=== PATIENT | male | born 1955 | race Caucasian/White ===

== ENCOUNTER 2022-10-18 07:44 | Outpatient (OUT) | payer OTHER, SELFPAY ==
--- NOTE | 2022-10-18 08:07 | CT_ITS ---
[address] [address] Patient Name: CHERYL LIMON MRN: [id number] date: 1955 Sex: M Assigned Patient Location: LAB Current Patient Location: LAB Accession/Order Number: [id number] Exam Date: 10/18/2022 08:45 Report Date: 10/18/2022 09:59 At the request of: LASHAUN JAIME Procedure: CT angio abd aorta runoff EXAMINATION: CT angio abd aorta runoff HISTORY: Venous Insufficiency I87.2 ; poor circulation within lower extremities COMPARISON: No relevant comparison available. TECHNIQUE: After obtaining the patient's consent, CT images of the abdomen, pelvis, and lower extremities were obtained without and with non-ionic intravenous contrast material. Multi-planar reformatted/3-D images were created to optimize visualization of vascular anatomy. Dose reduction techniques were achieved by using automated exposure control and/or adjustment of mA and/or kV according to patient size and/or use of iterative reconstruction technique. FINDINGS: AORTA: Mild atherosclerotic disease of aorta and mild-moderate atherosclerotic narrowing at the origins of the celiac axis and bilateral renal arteries. Unremarkable superior mesenteric artery. ILIAC: No aneurysm or dissection. Minimal atherosclerotic disease. RIGHT LEG: No significant stenosis or occlusion. Minimal atherosclerotic disease. LEFT LEG: No significant stenosis or occlusion. Minimal atherosclerotic disease. LUNG BASES: No visible pulmonary or pleural disease. LIVER: No enlargement, atrophy, abnormal density, or significant focal lesion. BILIARY: No visible dilatation or calcification. PANCREAS: No lesion, fluid collection, ductal dilatation, or atrophy. SPLEEN: No enlargement or focal lesion. ADRENALS: No mass or enlargement. KIDNEYS: No mass, obstruction, or calcification. BOWEL/MESENTERY: Diverticulosis of descending and sigmoid colon without acute inflammatory changes. No visible mass, obstruction, or bowel wall thickening. RETROPERITONEUM: No mass or adenopathy. PELVIC NODES: No adenopathy. URINARY BLADDER: No visible focal wall thickening, lesion, or calculus. PELVIC ORGANS: Moderate amount of fluid within right and left hemiscrotum. Grossly unremarkable prostate. ABDOMINAL WALL: No mass or hernia. BONES: L4 grade 1 anterolisthesis of L5 with right pars interarticularis defect and moderate disc height reduction. Moderate degenerative facet arthropathy L4-5 and L5-S1. OTHER: IMPRESSION: 1. Mild atherosclerotic disease of the aorta without aneurysm or dissection. 2. Minimal atherosclerotic disease of the iliac and lower extremity arteries with no appreciable narrowing. 3. Bilateral scrotal hydroceles of uncertain etiology. 4. Degenerative changes of lower lumbar spine. Electronically authenticated by: MARYELLEN AMAYA Date: 10/18/2022 09:59
[2022-10-18 08:13] LABS: Estimated GFR (African America 57 (>=60); Estimated GFR (Non-African Ame 47 (>=60)
== END 2022-10-18 07:45 ==
LOC: LAB 07:44
PROVIDERS: PCP Family Medicine; Visit Provider Family Medicine
DX: I87.2 Venous insufficiency (chronic) (peripheral) (principal); I70.0 Atherosclerosis of aorta; I70.209 Unspecified atherosclerosis of native arteries of extremities, unspecified extremity; I70.8 Atherosclerosis of other arteries; N43.3 Hydrocele, unspecified; M51.36 Other intervertebral disc degeneration, lumbar region
CPT/HCPCS: 36415; 75635; 82565; Q9967

== ENCOUNTER 2024-01-15 09:23 | Outpatient (OUT) | payer OTHER, SELFPAY ==
[2024-01-15 09:52] LABS: Basophils Percent Auto 0.6 % (0.2-2.0); Eosinophils Absolute Auto 0.1 10^3/uL (0.0-0.7); Eosinophils Percent Auto 2.4 % (0.9-7.0); Hematocrit 38.1 % (42.0-54.0); Hemoglobin 13.2 g/dL (14.0-18.0); Immature Granulocytes Abs Auto 0.01 10^3/uL (0.00-0.03); Immature Granulocytes Pct Auto 0.2 % (0.0-0.5); Lymphocytes Absolute Auto 0.8 10^3/uL (1.2-3.8); Mean Corpuscular HGB Conc 34.6 g/dL (29.9-35.2); Mean Corpuscular Hemoglobin 32.6 pg (25.9-34.0); Mean Corpuscular Volume 94.1 fL (80.0-94.0); Mean Platelet Volume 10.6 fL (9.5-13.5); Monocytes Absolute Auto 0.4 10^3/uL (0.3-0.8); Monocytes Percent Auto 9.4 % (1.7-12.0); Neutrophils Absolute Auto 3.2 10^3/uL (1.4-6.5); Neutrophils Percent Auto 69.4 % (43.0-75.0); Platelet Count 210 10^3/uL (150-450); Red Blood Count 4.05 10^6/uL (4.70-6.10); Red Cell Distribution Width 12.3 % (11.0-15.0); White Blood Count 4.7 10^3/uL (4.0-11.0)
[2024-01-15 11:03] LABS: Alanine Aminotransferase 36 U/L (16-63); Albumin Globulin Ratio 1.1; Albumin Level 3.5 g/dL (3.4-5.0); Alkaline Phosphatase 75 U/L (46-116); Anion Gap 10.4; Aspartate Amino Transferase 23 U/L (15-37); BUN Creatinine Ratio 12.5; Bilirubin Total 0.9 mg/dL (0.2-1.0); Calcium 9.2 mg/dL (8.5-10.1); Carbon Dioxide 29.2 mmol/L (21.0-32.0); Chloride 102 mmol/L (98-107); Chol HDL Ratio 3.6; Cholesterol 203 mg/dL (<=200); Estimated GFR (African America 55 (>=60); Estimated GFR (Non-African Ame 46 (>=60); Free T3 2.28 pg/mL (2.18-3.98); Globulin 3.3 g/dL; Glucose 148 mg/dL (74-106); HDL Cholesterol 57 mg/dL (40-60); Potassium 4.6 mmol/L (3.5-5.1); Sodium 137 mmol/L (136-145); Thyroid Stimulating Hormone 1.928 uIU/mL (0.358-3.740); Total Protein 6.8 g/dL (6.4-8.2); Triglycerides 135 mg/dL (<=150)
[2024-01-15 11:54] LABS: Estimated Average Glucose 183 mg/dL
[2024-01-15 12:08] LABS: Prostate Specific Antigen Dx 1.13 ng/mL (<=4.00)
== END 2024-01-15 09:24 | disposition home or self-care (01) ==
LOC: LAB 09:27
PROVIDERS: PCP Family Medicine; Visit Provider Family Medicine
DX: R25.1 Tremor, unspecified (principal); N40.0 Benign prostatic hyperplasia without lower urinary tract symptoms; K21.9 Gastro-esophageal reflux disease without esophagitis; E11.9 Type 2 diabetes mellitus without complications
CPT/HCPCS: 36415; 80053; 80061; 83036; 84153; 84436; 84443; 84481; 85025

== ENCOUNTER 2024-02-12 14:16 | Outpatient (OUT) | payer OTHER, SELFPAY | END 2024-02-12 14:17 | disposition home or self-care (01) | LOC: PST 14:16 | PROVIDERS: PCP Family Medicine; Visit Provider Surgery | DX: Z01.818 Encounter for other preprocedural examination (principal); Z86.0100 Personal history of colon polyps, unspecified ==

== ENCOUNTER 2024-02-19 08:21 | Day surgery (SDC) | payer OTHER, SELFPAY ==
--- NOTE | 2024-02-19 | OP_ITS ---
OPERATION DATE: 02/19/2024 PREOPERATIVE DIAGNOSIS: Personal history of colon polyps. POSTOPERATIVE DIAGNOSIS: Colon polyps x3; ascending colon x2 and 2 mm distal sigmoid polyp. PROCEDURE: Colonoscopy to cecum with cold snare polypectomy x2 for ascending colon polyps and cold biopsy forceps polypectomy x1 for distal sigmoid polyp. SURGEON: David Cerda M.D. ANESTHESIA: Monitored anesthesia care. ESTIMATED BLOOD LOSS: Less than 1 mL. INDICATIONS AND CONSENT: Patient is a 69-year-old male with a personal history of colon polyps. Last colonoscopy was four years ago. Indications, risks, benefits, alternatives of proceeding with colonoscopy were explained extensively to the patient, including the risks of bleeding, colon perforation or anesthetic complications. All of his questions were answered. Informed consent was obtained. PROCEDURE: Patient brought to the operating room, placed in the left lateral decubitus position. Monitored anesthesia care was provided. Rectal exam was performed which showed no masses or blood. The scope was inserted into the anal canal. Under direct visualization was advanced. It was advanced to the cecum where cecal markings were clearly identified. Upon withdrawal of the scope, mucosal surfaces were carefully examined. There were no mass lesions or polyps. No inflammatory changes or ulcerations. Within the ascending colon, there was noted to be a 4 mm sessile polyp that was removed with cold snare with good hemostasis. Just distal to this was a 3 mm sessile polyp that was also removed with cold snare with good hemostasis. This one was not retrieved. There was no significant diverticulosis. Within the distal sigmoid, there was 2 mm sessile polyp that was removed with cold biopsy forceps with good hemostasis. The scope was retroflexed in the anal canal. There was no significant hemorrhoidal disease. The scope was then withdrawn. Patient tolerated procedure well, was sent to recovery room in good condition. f/u colonoscopy likely in 5 years, but will depend on pathology report. CC: Rodger Sanders M.D. DARELL
--- OUTSIDE RECORDS SUMMARY | 2024-02-19 08:24 | XMS_ITS | CCD ---
Author Organization [facility] Care Team Providers Care Cardiology Associate Name Role Phone MD Baljinder Mccormick Emergency Provider MD Lashaun Sanders Primary Care Provider [phone] PROVIDER, UNKNOWN Admitting Unavailable PROVIDER, UNKNOWN Attending Unavailable PROVIDER, UNKNOWN Admitting Unavailable PROVIDER, UNKNOWN Attending Unavailable Baljinder Mccormick Attending Unavailable Baljinder Mccormick Admdeon Unavailable FranklinyLashaun Primary Care Unavailable HOY ., DR WILKS Consulting Unavailable HOY ., DR WILKS Admdeon Unavailable HOY ., DR WILKS Attending Unavailable HOY ., DR WILKS Primary Care Unavailable Alonso Cash Consulting Unavailable HOY ., DR WILKS Admitting Unavailable HOY ., DR WILKS Attending Unavailable HOY ., DR WILKS Consulting Unavailable HOY ., DR WILKS Primary Care Unavailable AFUA, DR YONI Kirkland Consulting Unavailable Alonso Cash Consulting Unavailable HOY ., DR WILKS Admitting Unavailable HOY ., DR WILKS Attending Unavailable HOY ., DR WILKS Consulting Unavailable HOY ., DR WILKS Primary Care Unavailable AFUA, DR YONI Kirkland Consulting Unavailable HOY ., DR WILKS Admdeon Unavailable HOY ., DR WILKS Attending Unavailable HOY ., DR WILKS Consulting Unavailable HOY ., DR WILKS Primary Care Unavailable HOY ., DR WILKS Primary Care Unavailable HOY ., DR WILKS Attending Unavailable HOY ., DR WILKS Admdeon Unavailable HOY ., DR WILKS Consulting Unavailable Alonso Cash Consulting Unavailable HOY ., DR WILKS Primary Care Unavailable HOY ., DR WILKS Attending Unavailable HOY ., DR WILKS Admitting Unavailable HOY ., DR WILKS Consulting Unavailable YONI BLEDSOE Unavailable EMI MARTINEZ Consulting Unavailable HOY ., DR WILKS Primary Care Unavailable HOY ., DR WILKS Admitting Unavailable HOY ., DR WILKS Attending Unavailable HOY ., DR WILKS Consulting Unavailable Cheryl CERDA Attending Unavailable Lashaun Sanders Referring Unavailable Lashaun Sanders Primary Care Physician Allergies Allergy Classification Reported Allergen(s) Allergy Type Date of Onset Reaction(s) Facility (1 source) No Known Medication Allergies; Translations: [No Known Medication Allergies] Propensity to adverse reactions (disorder) [facility] Repository Medications Current Medications Medication Drug Class(es) Dates Sig (Normalized) Sig (Original) atorvastatin 20 mg oral tablet (2 sources) HMG-CoA Reductase Inhibitor Start: 05-02-2020 take 1 tablet by mouth once daily Atorvastatin (Lipitor) 20 mg Tablet Active 20 MG PO Daily October 28, 2021 6:31pm lansoprazole 15 mg delayed release oral capsule (2 sources) Proton Pump Inhibitor Start: 10-28-2021 take 1 capsule by mouth once daily Lansoprazole (Prevacid) 15 mg Capsule,Delayed Release(Dr/Ec) Active 15 MG PO Daily October 28, 2021 6:31pm Start: 05-02-2020 take 1 capsule by [facility] once daily lansoprazole 30 mg Cap-DR 30 mg = 1 cap(s), Oral, Daily, Refills(s) 0 Start Date: 05/02/20 Status: Ordered metFORMIN hydrochloride 500 mg oral tablet (1 source) Biguanide Start: 01-23-2024 take 1 tablet by mouth twice daily metformin 500 mg Tab 500 mg = 1 tab(s), Oral, BID, Refills(s) 0 Start Date: 01/23/24 Status: Ordered metoprolol tartrate 25 mg oral tablet (1 source) beta-Adrenergic Omar Start: 01-23-2024 take 1 tablet by mouth twice daily Metoprolol tartrate 25 mg Tab 25 mg = 1 tab(s), Oral, BID, Refills(s) 0 Start Date: 01/23/24 Status: Ordered primidone 50 mg oral tablet (2 sources) Anti-epileptic Agent Start: 02-11-2024 take 1 tablet by mouth twice daily primidone 50 mg Tab 50 mg = 1 tab(s), Oral, BID, Refills(s) 0 Start Date: 02/11/24 Status: Ordered Start: 10-28-2021 take 10 mg by mouth once Primi done Active 10 MG PO Once October 28, 2021 6:31pm tamsulosin hydrochloride 0.4 mg oral capsule (1 source) alpha-Adrenergic Omar Start: 05-02-2020 take 1 capsule by mouth once daily Flomax 0.4 mg Cap 0.4 mg = 1 cap(s), Oral, Daily, Refills(s) 0 Start Date: 05/02/20 Status: Ordered Problems Active Problems Problem Classification Problem Date Documented Da te Episodic/Chronic Allergic reactions (1 source) 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 Anal and rectal conditions (1 source) Proctitis 05-02-2020 Episodic Cardiac dysrhythmias (1 source) Paroxysmal ventricular tachycardia 01-23-2024 Chronic Diabetes mellitus without complication (1 source) Diabetes mellitus 01-23-2024 Chronic Esophageal disorders (1 source) Gastroesophageal reflux disease 05-02-2020 Chronic Fluid and electrolyte disorders (1 source) Dehydration; Translations: [Dehydration] 10-28-2021 Episodic Hyperplasia of prostate (1 source) Benign prostatic hyperplasia 05-02-2020 Chronic Other and unspecified benign neoplasm (3 sources) History of polyp of colon; Translations: [Personal history of colonic polyps] Onset: 4 Episodic Other and unspecified benign neoplasm (1 source) Adenomatous polyp of colon 05-19-2020 Episodic Other circulatory disease (1 source) Orthostatic hypotension 05-02-2020 Episodic Other circulatory disease (1 source) Vascular insufficiency 01-23-2024 Episodic Other connective tissue disease (1 source) Pain in right lower leg; Translations: [PAIN IN RIGHT LOWER LEG] Onset: 3 Episodic Other connective tissue disease (1 source) Pain in left lower leg; Translations: [PAIN IN LEFT LOWER LEG] Onset: 3 Episodic Other connective tissue disease (1 source) Disorder of rotator cuff 05-02-2020 Episodic Other connective tissue disease (1 source) Impingement syndrome of shoulder region 05-02-2020 Episodic Other gastrointestinal disorders (1 source) Diarrhea; Translations: [Diarrhea, unspecified] 10-28-2021 Episodic Other gastrointestinal disorders (1 source) History of diverticulitis 05-02-2020 Episodic Other gastrointestinal disorders (1 source) Occult blood in stools 05-03-2020 Episodic Other male genital disorders (1 source) Impotence 05-02-2020 Chronic Other nervous system disorders (1 source) Tremor 05-02-2020 Episodic Other non-traumatic joint disorders (4 sources) Pain in left knee; Translations: [PAIN IN LEFT KNEE] Onset: 3 Episodic Other nutritional; endocrine; and metabolic disorders (1 source) Body mass index 30+ - obesity 02-11-2024 Chronic Other nutritional; endocrine; and metabolic disorders (1 source) Obesity caused by energy imbalance 01-23-2024 Chronic Unclassified (1 source) R19.7 - Diarrhea, unspecified; Translations: [R19.7 - Diarrhea, unspecified] Onset: 2 Past or Other Problems Problem Classification Problem Date Documented Da te Episodic/Chronic Nonspecific chest pain (4 sources) Other chest pain; Translations: [OTHER CHEST PAIN] Onset: 11-08-2021 Episodic Other screening for suspected conditions (not mental disorders or infectious disease) (1 source) Encounter for screening for malignant neoplasm of prostate; Translations: [ENC SCREEN MALIG NEOPLASM PROSTATE] Onset: 04-11-2022 Episodic Residual codes; unclassified (4 sources) Localized edema; Translations: [LOCALIZED EDEMA] Onset: 11-28-2021 Episodic Syncope (4 sources) Syncope and collapse; Translations: [SYNCOPE AND COLLAPSE] Onset: 10-30-2021 Episodic Results Test Name Value Interpretation Reference Range Facility Ambulatory Visit Summaryon 1 Ambulatory Visit Summary Ambulatory Visit Summary TORICHERYL RENDON :1955 Visit Date:02/11/2024 Ambulatory Visit Instructions Your Diagnosis Personal history of colonic polyps Your Care Team Attending Physician - Cheryl CERDA MD Primary Care Physician - Lashaun Sanders MD Referring Physician - Lashaun Sanders MD This Is Your Medications List Contact prescribing physician if questions or concerns atorvastatin (atorvastatin 20 mg Tab) lansoprazole (lansoprazole 30 mg Cap-DR) metformin (metformin 500 mg Tab) metoprolol (Metoprolol tartrate 25 mg Tab) primidone (primidone 50 mg Tab) tamsulosin (Flomax 0.4 mg Cap) Procedures Performed Colonoscopy (05/11/2020), Colonoscopy (10/20/2012), Colonoscopy (03/05/2008), Arthroplasty, Bilateral inguinal hernia repair, Fusion of lumbar spine. Discharge Vitals Heart Rate (Peripheral) 72 Respiratory Rate 16 Blood Pressure 146/84 Height 162.5 cm Height 64 in Weight 82.6 kg Weight 181.72 lb BMI 31.28 Medications What How Much When Instructions Unchanged atorvastatin (atorvastatin 20 mg Tab) 1 Tablets By Mouth Every day Contact prescribing physician if questions or concerns Unchanged lansoprazole (lansoprazole 30 mg Cap-DR) 1 Capsules By Mouth Every day Contact prescribing physician if questions or concerns Unchanged metformin (metformin 500 mg Tab) 1 Tablets By Mouth 2 times a day Contact prescribing physician if questions or concerns Unchanged metoprolol (Metoprolol tartrate 25 mg Tab) 1 Tablets By Mouth 2 times a day Contact prescribing physician if questions or concerns Unchanged primidone (primidone 50 mg Tab) 1 Tablets By Mouth 2 times a day Contact prescribing physician if questions or concerns Unchanged tamsulosin (Flomax 0.4 mg Cap) 1 Capsules By Mouth Every day Contact prescribing physician if questions or concerns Allergies No Known Allergies No Known Medication Allergies Problems Ongoing - Any problem that you are currently receiving treatment for. BMI 31.0-31.9,adult BPH (benign prostatic hyperplasia) Diabetes Dyshidrotic eczema GERD (gastroesophageal reflux disease) History of colon polyps History of diverticulitis Impotence Obesity due to excess calories Orthostatic hypotension Personal history of colonic polyps Positive fecal occult blood test PVT (paroxysmal ventricular tachycardia) Rotator cuff tear Shoulder impingement syndrome Tremor Tubulovillous adenoma of colon Ulcerative proctitis Venous insufficiency Patient Survey You may receive a survey via text or e-mail asking about your office visit. Please share your experience with us by completing your survey. We appreciate your feedback and thank you for choosing us for your care. [facility] Provider Letteron 01-14-2024 Provider Letter Provider Letter January 14, 2024 [address]ART [address] [place] [id number] : 1955 Dear Torijosue, We have been trying to reach you with no success regarding a referral from Dr Sanders. It is important that you return our call upon receiving this letter. Also, at the time of your call, please provide us with your current information. Thank you for your prompt attention to this matter. Sincerely, [facility] General Surgery [phone] [facility] Provider Letteron 05-03-2023 Provider Letter May 03, 2023 CHERYL MART [address] [place] [id number] : 1955 Dear Cheryl, We have been trying to reach you with no success. It is important that you return our call upon receiving this letter. Also, at the time of your call, please provide us with your current information. Thank you for your prompt attention to this matter. Sincerely, Dr. Cheryl Cerda MD General Surgery [facility] Provider Letteron 04-22-2023 Provider Letter April 22, 2023 CHERYL MART [address] [place] [id number] : 1955 Dear Cheryl, We have been trying to reach you with no success. It is important that you return our call upon receiving this letter. Also, at the time of your call, please provide us with your current information. Thank you for your prompt attention to this matter. Sincerely, Dr. Cheryl Cerda MD General Surgery [facility] MRI KNEE LT WO CONon 16- 023 MRI KNEE LT WO CON EXAMINATION: MRI KNEE LT WO CON HISTORY: Derangement of left knee ; acute left knee pain, instability COMPARISON: No relevant comparison available. TECHNIQUE: A complete multi-planar MRI was performed. FINDINGS: MEDIAL COMPARTMENT MEDIAL MENISCUS: Irregular longitudinal T2 signal throughout the meniscus. Thin curvilinear hyperintensity extending from outer wall to superior surface involving the anterior horn. More diffuse increased signal within posterior horn. CARTILAGE: Mild cartilage thinning without focal defect. BONES: No marrow pathology, fracture, or significant arthropathy. MCL AND MEDIAL CAPSULE: Grade I sprain of the medial collateral ligament. LATERAL COMPARTMENT LATERAL MENISCUS: No visible tear or significant degeneration. CARTILAGE: No visible defect. BONES: No marrow pathology, fracture, or significant arthropathy. LCL/POSTEROLAT COMPLEX: Normal lateral collateral ligament, fascicles, lateral capsule and ligaments. ANTERIOR COMPARTMENT PATELLA: No marrow pathology, fracture, or significant arthropathy. CARTILAGE: No visible defect. TENDONS: Normal. EFFUSION: None. No synovitis or loose bodies. ACL: Normal appearing ligament. PCL: Normal appearing ligament. MENISCOFEMORAL: Normal meniscofemoral ligaments. OTHER: Subcutaneous edema. Small Danielson's cyst. IMPRESSION: 1. Intrasubstance degeneration versus small microtears of the medial meniscus. 2. Mild thinning of the cartilage within the medial compartments without appreciable defect. 3. Small joint effusion and small small Danielson's cyst. 4. Subcutaneous edema. Electronically authenticated by: ALONSO CASH Date: 2022-09-25 09:35 Normal [facility] US BERT DOP LEG BILon 023 US BERT DOP LEG TRINY Ultrasound venous duplex scan right lower extremity CLINICAL: Leg pain and edema TECHNIQUE: Aguilar-scale, color-flow, and Spectral Doppler examination of the right lower extremity were performed with and without provocative maneuvers. FINDINGS: Sonographic examination of the right lower extremity deep venous system to include the common femoral, superficial femoral and popliteal veins, demonstrates normal compressibility, color-flow, respiratory variation, and augmentation. The origin and proximal segment of the greater saphenous vein also demonstrates normal compression and color-flow. There is normal color-flow in the peroneal, posterior tibial, and anterior tibial veins. IMPRESSION: No deep venous thrombosis of the right lower extremity. Ultrasound venous duplex scan left lower extremity CLINICAL: Pain and edema TECHNIQUE: Aguilar-scale, color-flow, and Spectral Doppler examination of the left lower extremity were performed with and without provocative maneuvers. FINDINGS: Sonographic examination of the left lower extremity deep venous system to include the common femoral, superficial femoral and popliteal veins, demonstrates normal compressibility, color-flow, respiratory variation, and augmentation. The origin and proximal segment of the greater saphenous vein also demonstrates normal compression and color-flow. There is normal color-flow in the peroneal, posterior tibial, and anterior tibial veins. IMPRESSION: No deep venous thrombosis of the left lower extremity. There was edema in the soft tissues of the calf and ankle. Electronically authenticated by: YONI BLEDSOE Date: 2022-09-12 10:14 Normal [facility] XR KNEE LT 4V or >on 023 XR KNEE LT 4V or > EXAM: XR KNEE LT 4V or > HISTORY: Pain of left knee joint COMPARISON: None. TECHNIQUE: 4 views FINDINGS/IMPRESSION: There is no acute fracture or dislocation. Mild degenerative change of the knee joint with meniscal calcinosis. The soft tissues are unremarkable. Electronically authenticated by: EMI MARTINEZ Date: 2022-09-12 14:00 Normal [facility] INSULINon 04-07-2022 Insulin 14.1 uIU/mL Normal 2.6-24.9 [facility] Comment on above: Performed By: #### I NSULIN #### [facility] [address] [address] [address] Dominga Greenfield CBC AUTO DIFFon 04-06-2022 BASO # 0.0 103/ul Normal 0.0-0.1 [facility] Comment on above: Performed By: #### C BC #### [facility] [address] [place] [address] Dr. Dominga Greenfield Basophils/100 WBC (Bld) 0.6 % Normal 0.2-2.0 [facility] Comment on above: Performed By: #### C BC #### [facility] [address] [place] [address] Dr. Dominga Greenfield EO # 0.1 103/ul Normal 0.0-0.7 [facility] Comment on above: Performed By: #### C BC #### [facility] [address] [place] [address] Dr. Dominga Greenfield Eosinophils/100 WBC (Bld) 2.4 % Normal 0.9-7.0 [facility] Comment on above: Performed By: #### C BC #### [facility] [address] [place] [address] Dr. Dominga Greenfield Erythrocyte distribution width (RBC) [Ratio] 12.5 % Normal 11.0-15.0 [facility] Comment on above: Performed By: #### C BC #### [facility] [address] [place] [address] Dr. Dominga Greenfield Hematocrit (Bld) [Volume fraction] 40.2 % Critically low 42.0-54.0 [facility] Comment on above: Performed By: #### C BC #### [facility] [address] [place] [address] Dr. Dominga Greenfield Hemoglobin (Bld) [Mass/Vol] 13.8 g/dL Critically low 14.0-18.0 [facility] Comment on above: Performed By: #### C BC #### [facility] [address] [place] [address] Dr. Dominga Greenfield IG # 0.02 10e3/ul Normal 0.00-0.03 [facility] Comment on above: Performed By: #### C BC #### [facility] [address] [place] [address] Dr. Dominga Greenfield IG % 0.4 % Normal 0.0-0.5 [facility] Comment on above: Performed By: #### C BC #### [facility] [address] [place] [address] Dr. Dominga Greenfield LYMPH # 1.0 103/ul Critically low 1.2-3.8 [facility] Comment on above: Performed By: #### C BC #### [facility] [address] [place] [address] Dr. Dominga Greenfield Lymphocytes/100 WBC (Bld) 19.8 % Critically low 20.5-60.0 [facility] Comment on above: Performed By: #### C BC #### [facility] [address] [place] [address] Dr. Dominga Greenfield MANUAL DIFF REQ NO Normal [facility] Comment on above: Performed By: #### C BC #### [facility] [address] [place] [address] Dr. Dominga Greenfield MCH (RBC) [Entitic mass] 31.9 pg Normal 25.9-34.0 [facility] Comment on above: Performed By: #### C BC #### [facility] [address] [place] [address] Dr. Dominga Greenfield MCHC (RBC) [Mass/Vol] 34.3 g/dL Normal 29.9-35.2 [facility] Comment on above: Performed By: #### C BC #### [facility] [address] [place] [address] Dr. Dominga Greenfield MCV (RBC) [Entitic vol] 93.1 fL Normal 80.0-94.0 [facility] Comment on above: Performed By: #### C BC #### [facility] [address] [place] [address] Dr. Dominga Greenfield MONO # 0.4 103/ul Normal 0.3-0.8 [facility] Comment on above: Performed By: #### C BC #### [facility] [address] [address] [address] Dominga Greenfield Monocytes/100 WBC (Bld) 8.4 % Normal 1.7-12.0 [facility] Comment on above: Performed By: #### C BC #### [facility] [address] [address] [address] Dominga Greenfield NEUT # 3.4 103/ul Normal 1.4-6.5 [facility] Comment on above: Performed By: #### C BC #### [facility] [address] [address] [address] Dominga Greenfield Neutrophils/100 WBC (Bld) 68.4 % Normal 43.0-75.0 [facility] Comment on above: Performed By: #### C BC #### [facility] [address] [address] [address] Dominga Greenfield Platelet mean volume (Bld) [Entitic vol] 11.0 fL Normal 9.5-13.5 [facility] Comment on above: Performed By: #### C BC #### [facility] [address] [address] [address] Dominga Greenfield PLT 206 103/ul Normal 150-450 [facility] Comment on above: Performed By: #### C BC #### [facility] [address] [address] [address] Dominga Greenfield RBC 4.32 106/ul Critically low 4.70-6.10 [facility] Comment on above: Performed By: #### C BC #### [facility] [address] [address] [address] Dominga Greenfield WBC 5.0 103/ul Normal 4.0-11.0 [facility] Comment on above: Performed By: #### C BC #### [facility] [address] [address] [address] Dominga Greenfield GLYCOHEMOGLOBIN A1Con 2021 ADA RECOMMENDATION SEE BELOW Normal [facility] Comment on above: Result Comment: ADA RECOMMENDED LIMIT 4.0 - 6.0 ADA THERAPEUTIC TARGET < 7.0 ACTION SUGGESTED > 7.0 Performed By: #### A 1C #### [facility] [address] [address] [address] Dominga Greenfield Glucose [Mass/Vol] 146 mg/dL Normal [facility] Comment on above: Performed By: #### A 1C #### [facility] [address] [address] [address] Dominga Greenfield HbA1c (Bld) [Mass fraction] 6.7 % Critically high 4.5-6.2 [facility] Comment on above: Performed By: #### A 1C #### [facility] [address] [place] [address] Dr. Dominga Greenfield LIPID PROFILEon 04-06-2022 CHOL-HDL RATIO NORM SEE BELOW Normal [facility] Comment on above: Result Comment: 3.3 - 4.4 LOW RISK 4.4 - 7.1 AVERAGE RISK 7.1 - 11.0 MODERATE RISK >11.0 HIGH RISK Performed By: #### C MP, URIC, LIPID #### [facility] [address] [place] [address] Dr. Dominga Greenfield Cholesterol [Mass/Vol] 203 mg/dL Critically high <=200 [facility] Comment on above: Performed By: #### C MP, URIC, LIPID #### [facility] [address] [place] [address] Dr. Dominga Greenfield Cholesterol in HDL [Mass/Vol] 65 mg/dL Critically high 40-60 [facility] Comment on above: Performed By: #### C MP, URIC, LIPID #### [facility] [address] [address] [address] Dominga Greenfield Cholesterol in LDL [Mass/Vol] 120.8 mg/dL Normal [facility] Comment on above: Performed By: #### C MP, URIC, LIPID #### [facility] [address] [place] [address] Dr. Dominga Greenfield Cholesterol.total/Nedra sterol in HDL [Mass ratio] 3.1 {ratio} Normal [facility] Comment on above: Performed By: #### C MP, URIC, LIPID #### [facility] [address] [address] [address] Dominga Greenfield HDL NORMAL > or = 60 mg/dl - LOW CARDIOVASCULAR RISK <40 mg/dl - HIGH CARDIOVASCULAR RISK Normal [facility] Comment on above: Performed By: #### C MP, URIC, LIPID #### [facility] [address] [address] [address] Dominga Greenfield LDL CALC NORMAL SEE BELOW Normal [facility] Comment on above: Result Comment: <100 mg/dl OPTIMAL 100 - 129 mg/dl NEAR OR ABOVE OPTIMAL 130 - 159 mg/dl BORDERLINE HIGH 160 - 189 mg/dl HIGH >190 mg/dl VERY HIGH Performed By: #### C MP, URIC, LIPID #### [facility] [address] [address] [address] Dominga Greenfield Triglyceride [Mass/Vol] 86 mg/dL Normal <=150 [facility] Comment on above: Performed By: #### C MP, URIC, LIPID #### [facility] [address] [address] [address] Dominga Greenfield VLDL CALC 17.2 mg/dL Normal [facility] Comment on above: Performed By: #### C MP, URIC, LIPID #### [facility] [facility] [address] [address] [address] Dominga Greenfield PROF 14(COMP METB)on 022 Albumin [Mass/Vol] 3.6 g/dL Normal 3.4-5.0 [facility] Comment on above: Performed By: #### C MP, URIC, LIPID #### [facility] [address] [place] [address] Dr. Dominga Greenfield Albumin/Globulin [Mass ratio] 1.1 {ratio} Normal [facility] Comment on above: Performed By: #### C MP, URIC, LIPID #### [facility] [address] [place] [address] Dr. Dominga Greenfield ALP [Catalytic activity/Vol] 66 U/L Normal 46-116 [facility] Comment on above: Performed By: #### C MP, URIC, LIPID #### [facility] [address] [address] [address] Dominga Greenfield ALT [Catalytic activity/Vol] 29 U/L Normal 16-63 [facility] Comment on above: Performed By: #### C MP, URIC, LIPID #### [facility] [address] [place] [address] Dr. Dominga Greenfield Anion gap [Moles/Vol] 10.6 mmol/L Normal [facility] Comment on above: Performed By: #### C MP, URIC, LIPID #### [facility] [address] [place] [address] Dr. Dominga Greenfield AST [Catalytic activity/Vol] 15 U/L Normal 15-37 [facility] Comment on above: Performed By: #### C MP, URIC, LIPID #### [facility] [address] [place] [address] Dr. Dominga Greenfield Bilirubin [Mass/Vol] 0.6 mg/dL Normal 0.2-1.0 [facility] Comment on above: Performed By: #### C MP, URIC, LIPID #### [facility] [address] [place] [address] Dr. Dominga Greenfield Calcium [Mass/Vol] 9.1 mg/dL Normal 8.5-10.1 [facility] Comment on above: Performed By: #### C MP, URIC, LIPID #### [facility] [address] [place] [address] Dr. Dominga Greenfield Chloride [Moles/Vol] 105 mmol/L Normal 98-107 [facility] Comment on above: Performed By: #### C MP, URIC, LIPID #### [facility] [address] [place] [address] Dr. Dominga Greenfield CO2 [Moles/Vol] 29.8 mmol/L Normal 21.0-32.0 [facility] Comment on above: Performed By: #### C MP, URIC, LIPID #### [facility] [address] [place] [address] Dr. Dominga Greenfield Creatinine [Mass/Vol] 1.31 mg/dL Critically high 0.70-1.30 [facility] Comment on above: Performed By: #### C MP, URIC, LIPID #### [facility] [address] [address] [address] Dominga Greenfield EGFR-AF GABONESE >60 Normal >=60 [facility] Comment on above: Performed By: #### C MP, URIC, LIPID #### [facility] [address] [address] [address] Dominga Greenfield EGFR-NON AF GABONESE 54 mL/min/1.73m2 Critically low >=60 [facility] Comment on above: Performed By: #### C MP, URIC, LIPID #### [facility] [address] [address] [address] Dominga Greenfield Globulin (S) [Mass/Vol] 3.4 g/dL Normal [facility] Comment on above: Performed By: #### C MP, URIC, LIPID #### [facility] [address] [address] [address] Dominga Greenfield Glucose [Mass/Vol] 184 mg/dL Critically high 74-106 [facility] Comment on above: Performed By: #### C MP, URIC, LIPID #### [facility] [address] [address] [address] Dominga Greenfield Potassium [Moles/Vol] 4.4 mmol/L Normal 3.5-5.1 [facility] Comment on above: Performed By: #### C MP, URIC, LIPID #### [facility] [address] [address] [address] Dominga Greenfield Protein [Mass/Vol] 7.0 g/dL Normal 6.4-8.2 [facility] Comment on above: Performed By: #### C MP, URIC, LIPID #### [facility] [address] [address] [address] Dominga Greenfield Sodium [Moles/Vol] 141 mmol/L Normal 136-145 [facility] Comment on above: Performed By: #### C MP, URIC, LIPID #### [facility] [address] [address] [address] Dominga Greenfield Urea nitrogen [Mass/Vol] 22.0 mg/dL Critically high 7.0-18.0 [facility] Comment on above: Performed By: #### C MP, URIC, LIPID #### [facility] [address] [address] [address] Dominga Greenfield Urea nitrogen/Creatinine [Mass ratio] 16.8 mg/mg Normal [facility] Comment on above: Performed By: #### C MP, URIC, LIPID #### [facility] [id number] Dominga Greenfield URIC ACID SERUMon 04-06-2022 Urate [Mass/Vol] 5.5 mg/dL Normal 3.5-7.2 [facility] Comment on above: Performed By: #### C MP, URIC, LIPID #### [facility] [id number] Dominga Greenfield VC COMP CONSULTATIONon 11-28 VC COMP CONSULTATION Patient: CHERYL MART Exam Date: 11/28/2021 : 1955 Gender:M Ordering : DR LASHAUN SANDERS . Admission #: [id number] Family : Order #: [id number] CLICK HERE TO VIEW EXAM RADIOLOGY REPORT PROCEDURE: VC VEIN CENTER CONSULTATION VEIN CENTER - OFFICE VISIT INITIAL COMPARISON: None. PROGRESS NOTES: [age] year old male who presents with a 2 year history of leg pain, swelling, muscle cramps. The patient's left leg symptoms are worse than the right. There has been a progression of symptoms. This increases with prolonged standing. The patient describes an improvement with rest and elevation. The patient denies any signs and symptoms to suggest arterial ischemia. The patient describes a family history : Unknown, adopted. The patient has drinking and smoking history of : None. Patient has a past medical history significant for edema, venous insufficiency, diabetes mellitus type 2. The patient denies a history of deep venous thrombus or pulmonary embolus. See separate history and physical for medication list. No prior treatment for varicose or spider veins. No current use of compression stockings. After review of nurse notes, history and physical exam I discussed at length the pathophysiology of venous hypertension and possible treatments, therapies and strategies available. We discussed at length the importance of elevating the lower extremities above the level of the heart, increased physical activity and compression stocking use. Ultrasound venous reflux study performed today for right leg and on November 15, 2021 for left leg was discussed at length with the patient. The report demonstrates focal areas of mild venous reflux but no abnormal dilation of the veins. PHYSICAL EXAM: The right leg demonstrates no visible varicosities, no significant spider veins, no ulceration, no edema, no skin discoloration. The left leg demonstrates no visible varicosities, no significant spider veins, no ulceration, mild focal edema of lateral distal lower leg , no skin discoloration. Both thighs, legs and feet were symmetrically warm to the touch. Good posterior tibial and dorsalis pedis pulses were present bilaterally. IMPRESSION: 1. No significant venous insufficiency 2. No significant lower extremity varicose veins 3. Mild focal left distal lower extremity subcutaneous edema 4. No flow significant arterial disease 5. CEAP: C0, EN, AN, KS PLAN: 1. Use of compression stockings 2. Elevated legs and increased physical activity symptomatic relief 3. Follow-up in future as needed. Nurse notes, history and physical were reviewed and confirmed, see attached forms. The nurse was present throughout the physical exam and consultation Dictated by: Alonso Cash M.D. on 11/28/2021 at 13:42 Approved by: Alonso Cash M.D. on 11/28/2021 at 13:50 Normal [facility] VC VENOUS REFLUX RT [facility] VC VENOUS REFLUX RT T Patient: CHERYL MART Exam Date: 11/28/2021 : 1955 Gender:M Ordering : DR LASHAUN SANDERS . Admission #: [id number] Family : Order #: [id number] CLICK HERE TO VIEW EXAM RADIOLOGY REPORT PROCEDURE: VEIN CENTER ULTRASOUND VENOUS REFLUX RIGHT LIMTED COMPARISON: VC VENOUS REFLUX LT LMT, 11/15/2021. INDICATIONS: Localized edema TECHNIQUE: Duplex imaging of the lower extremity to assess the deep and superficial venous system for the presence of deep or superficial venous incompetence and to document the location and severity of disease. The study includes evaluation of the great saphenous vein (GSV), anterior accessory saphenous vein (AASV) and small saphenous vein (SSV). Patient scanned in reverse Trendelenburg and standing. FINDINGS: RIGHT LOWER EXTREMITY: Saphenofemoral Junction Reflux: Yes 5.7mm 1.9 sec GSV: Diam (mm) Reflux/ Time (sec) Proximal Thigh 4.4 Yes 1.6 Mid Thigh 1.8 No Distal Thigh 2.4 No Prox Calf 1.6 No Mid Calf 2.3 No Saphenopopliteal Junction Reflux: 3.8 mm No 1.5 SSV: Proximal Calf 2.2 Yes 0.9 Mid Calf 2.3 No AASV: Not present Proximal Thigh Mid Thigh Distal Thigh Thrombi: No acute or chronic thrombus visualized Compressibility: Normal Flow: Normal Waste Picker: Dist/med calf 2.1mm with 0s reflux. Mid/med calf 2.4mm with 0s reflux. Prox/med 3.8mm with 0.3s. Tech Note: Incompetent SFJ. GSV is discontinuous from distal thigh to proximal calf. Patent varicose vein mid/med calf 3.8mm with 0.8s reflux. Patent varicose vein prox/med calf 2.5mm with 0s reflux. CONCLUSION: 1. Focal areas of mild reflux, but no abnormal dilation of the right lower extremity veins. Dictated by: Alonso Cash M.D. on 11/28/2021 at 11:25 Approved by: Alonso Cash M.D. on 11/28/2021 at 11:33 Normal [facility] VC VENOUS REFLUX [facility] VC VENOUS REFLUX [facility] Patient: CHERYL MART Exam Date: 11/15/2021 : 1955 Gender:M Ordering : DR LASHAUN SANDERS . Admission #: [id number] Family : Order #: [id number] CLICK HERE TO VIEW EXAM RADIOLOGY REPORT PROCEDURE: VEIN CENTER ULTRASOUND VENOUS REFLUX LEFT LIMTED COMPARISON: None. INDICATIONS: Edema of left lower leg R60.0 TECHNIQUE: Duplex imaging of the lower extremity to assess the deep and superficial venous system for the presence of deep or superficial venous incompetence and to document the location and severity of disease. The study includes evaluation of the great saphenous vein (GSV), anterior accessory saphenous vein (AASV) and small saphenous vein (SSV). Patient scanned in reverse Trendelenburg and standing. FINDINGS: LEFT LOWER EXTREMITY: Saphenofemoral Junction Reflux: Yes 6.4mm 0.9 sec GSV: Diam (mm) Reflux/ Time (sec) Proximal Thigh 4.3 No Mid Thigh 2.6 Yes 0.7 Distal Thigh 2.9 No Prox Calf 4.0 Yes 4.5 Mid Calf 3.0 No Saphenopopliteal Junction Reflux: 3.8 mm Yes 0.4 SSV: Proximal Calf 2.9 Yes 0.6 Mid Calf 3.4 Yes 0.3 AASV: Proximal Thigh 4.1 Yes 0.6 Mid Thigh 3.1 Yes 0.7 Distal Thigh Thrombi: No acute or chronic thrombus. Compressibility: Normal. Flow: Minimal reflux in femoral vein. Waste Picker: Dist/med calf 2.7mm. Prox/med calf 2.6mm with 3.1s reflux. Mid/lat calf 3.0mm, 3.9s reflux. Tech Note: Varicose vein mid/lateral lower leg associated with new grad rn in area of pain measures 1.9 mm. Proximal/medial calf varicosity measures 4.8mm with 3.3s reflux. CONCLUSION: 1. 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 2. Areas of mild reflux within the great saphenous, small saphenous, and anterior accessory saphenous veins with vein diameters remaining within normal limits. 3. Consultation for venous ablation should be considered. Dictated by: Alonso Cash M.D. on 11/15/2021 at 15:23 Approved by: Alonso Cash M.D. on 11/15/2021 at 15:38 Normal [facility] STRESS/REST MULTIon 11-08 PR STRESS/REST MULTI Patient: CHERYL MARTFaustina Exam Date: 11/08/2021 : 1955 Gender:M Ordering : DR LASHAUN SANDERS . Admission #: [id number] Family : Order #: [id number] CLICK HERE TO VIEW EXAM RADIOLOGY REPORT PROCEDURE: RADIONUCLIDE IMAGING STRESS/REST MULTI COMPARISON: None. INDICATIONS: Chest pain TECHNIQUE: Exam Description: Stress/Rest one day protocol gated SPECT Rest Imagin.8 mCi Tc-99m Cardiolite IV on 11/08/2021 Stress Imaging 30.3 mCi Tc-99m Cardiolite IV on 11/08/2021 Exercise Protocol: 0.4 mg Lexiscan given IV Heart Rate (bpm): Rest: 64 Max: 144 PMHR: 94 Blood Pressure: Rest: 138/86 Max: 214/92 Exercise Time: Minutes: 9 Seconds: 31 Stage Reached: Stage: 4 Mets 10.1 Symptoms: Rest and peak stress ECG findings were non-diagnostic and the exercise portion of the study was Non-diagnostic per attending physician Dr. Laughlin due to resting ST segment downsloping in lead III. For more details please see separate cardiac stress test report. FINDINGS: QUALITY OF STUDY: Good. PERFUSION DEFECT: None. LOCATION: N/A SIZE: N/A. SEVERITY: N/A. TYPE: N/A. WALL MOTION: Normal. LV SIZE: Normal. 98 mL. TID / TCD: None; 1.0 LVEF: Normal. Calculated EF 66%. SUMMARY: Myocardial perfusion imaging study is NORMAL. CONCLUSION: 1. Normal myocardial perfusion scan with no reversible ischemia 2. Nondiagnostic exercise test secondary to EKG changes Dictated by: Yoni Yates MD on 11/09/2021 at 07:07 Approved by: Yoni Yates MD on 11/09/2021 at 07:08 Normal [facility] XR chest 1V portableon 10-29 XR chest 1V portable [facility] [place] [address] [place] [address] XRay Report Signed Patient: Cheryl Mart MR#: [id number] 33 : 1955 Acct:[id number] Age/Sex: 66 / M ADM Date: 10/28/21 Loc: ER Room: Type: [facility] ER Attending Dr: Copies to: Baljinder Mccormick MD Ordering Provider: Baljinder Mccormick MD Date of Service: 10/28/21 XR/XR chest 1V portable: Syncope SINGLE VIEW CHEST CLINICAL HISTORY: Dizziness, diarrhea, fainted today while on toilet. COMPARISON: None FINDINGS: Heart is normal in size. Lungs are clear. No free air. XR/XR chest 1V portable IMPRESSION: NO ACUTE FINDINGS Impression dictated by: Benigno Lilly Jr., D.O.10/29/2021 10:56 AM Dictation Location: [address] [address] Transcribed By: [facility] 10/29/21 1056 Dictated By: Benigno Lilly Jr, DO 10/29/21 1053 Signed By: 10/29/21 1056 Normal [facility] Activated partial thrombopla stin time (aPTT) in platelet poor plasma by coagulation aOrdered By: Baljinder Mccormick on 10-28-2021 aPTT Coag (PPP) [Time] 28.6 s 25.1-36.5 [facility] Albumin [Mass/volume] in Ser um or PlasmaOrdered By: Baljinder Mccormick on 10-28-2021 Albumin [Mass/Vol] 3.6 g/dL 3.2-5.5 [facility] Basophils Auto (Bld) [#/Vol] Ordered By: Baljinder Mccormick on 10-28-2021 Basophils (Bld) [#/Vol] 0.0 10*3/uL 0.0-0.2 [facility] Basophils/100 WBC Auto (Bld) Ordered By: Baljinder Mccormick on 10-28-2021 Basophils/100 WBC (Bld) 0.2 % [facility] Blood hemoglobin measurement (mass/volume)Ordered By: Baljinder Mccormick on 10-28-2021 Hemoglobin (Bld) [Mass/Vol] 13.6 g/dL 13.0-17.0 [facility] Blood leukocytes automated c ount (number/volume)Ordered By: Baljinder Mccormick on 10-28-2021 WBC (Bld) [#/Vol] 10.8 10*3/uL 4.5-11.0 [facility] Complete Blood Count Auto Di ffon 10-28-2021 Basophils (Bld) [#/Vol] 0.0 10*3/uL Normal 0.0-0.2 [facility] Comment on above: Result Comment: PERF ORMED BY: [place] [address] PATHOLOGIST PRESS ASSISTANT AND FEEDER LARS CORTEZ M.D. Performed By: #### C KMB, HS TROP, CBC, PT, PTT, CMP, CK #### [facility] [address] Basophils/100 WBC (Bld) 0.2 % Normal . [facility] Comment on above: Performed By: #### C KMB, HS TROP, CBC, PT, PTT, CMP, CK #### [address] Eosinophils (Bld) [#/Vol] 0.0 10*3/uL Normal 0.0-0.45 [facility] Comment on above: Performed By: #### C KMB, HS TROP, CBC, PT, PTT, CMP, CK #### [address] Eosinophils/100 WBC (Bld) 0.4 % Normal . [facility] Comment on above: Performed By: #### C KMB, HS TROP, CBC, PT, PTT, CMP, CK #### [address] Erythrocyte distribution width (RBC) [Ratio] 13.6 % Normal 12.0-14.8 [facility] Comment on above: Performed By: #### C KMB, HS TROP, CBC, PT, PTT, CMP, CK #### [address] Hematocrit (Bld) [Volume fraction] 40.4 % Normal 38.8-50.0 [facility] Comment on above: Performed By: #### C KMB, HS TROP, CBC, PT, PTT, CMP, CK #### [address] Hemoglobin (Bld) [Mass/Vol] 13.6 g/dL Normal 13.0-17.0 [facility] Comment on above: Performed By: #### C KMB, HS TROP, CBC, PT, PTT, CMP, CK #### [address] Lymphocytes (Bld) [#/Vol] 0.6 10*3/uL Low 1.00-4.8 [facility] Comment on above: Performed By: #### C KMB, HS TROP, CBC, PT, PTT, CMP, CK #### [address] Lymphocytes/100 WBC (Bld) 5.5 % Normal . [facility] Comment on above: Performed By: #### C KMB, HS TROP, CBC, PT, PTT, CMP, CK #### [address] MCH (RBC) [Entitic mass] 31.6 pg Normal 27.5-35.2 [facility] Comment on above: Performed By: #### C KMB, HS TROP, CBC, PT, PTT, CMP, CK #### [address] MCV (RBC) [Entitic vol] 93.7 fL Normal 83.5-[address] [facility] Comment on above: Performed By: #### C KMB, HS TROP, CBC, PT, PTT, CMP, CK #### [address] Mean Corpuscular HGB Conc 33.7 g/dL Normal 32.5-35.6 [facility] Comment on above: Performed By: #### C KMB, HS TROP, CBC, PT, PTT, CMP, CK #### [address] Monocytes (Bld) [#/Vol] 0.6 10*3/uL Normal 0.0-0.8 [facility] Comment on above: Performed By: #### C KMB, HS TROP, CBC, PT, PTT, CMP, CK #### [address] Monocytes/100 WBC (Bld) 5.4 % Normal . [facility] Comment on above: Performed By: #### C KMB, HS TROP, CBC, PT, PTT, CMP, CK #### [address] Neutrophils (Bld) [#/Vol] 9.6 10*3/uL High 1.8-7.7 [facility] Comment on above: Performed By: #### C KMB, HS TROP, CBC, PT, PTT, CMP, CK #### [address] Neutrophils/100 WBC (Bld) 88.5 % Normal . [facility] Comment on above: Performed By: #### C KMB, HS TROP, CBC, PT, PTT, CMP, CK #### [facility] [address] Nucleated RBC/100 WBC (Bld) [Ratio] 0.0 % Normal 0-0.5 [facility] Comment on above: Performed By: #### C KMB, HS TROP, CBC, PT, PTT, CMP, CK #### [facility] [address] Platelet mean volume (Bld) [Entitic vol] 9.0 fL Normal 6.6-10.1 [facility] Comment on above: Performed By: #### C KMB, HS TROP, CBC, PT, PTT, CMP, CK #### [facility] [address] Platelets (Bld) [#/Vol] 218 10*3/uL Normal 150-450 [facility] Comment on above: Performed By: #### C KMB, HS TROP, CBC, PT, PTT, CMP, CK #### [facility] [address] RBC (Bld) [#/Vol] 4.31 10*6/uL Normal 3.90-5.60 [facility] Comment on above: Performed By: #### C KMB, HS TROP, CBC, PT, PTT, CMP, CK #### [facility] [address] WBC (Bld) [#/Vol] 10.8 10*3/uL Normal 4.5-11.0 [facility] Comment on above: Performed By: #### C KMB, HS TROP, CBC, PT, PTT, CMP, CK #### [facility] [address] Comprehensive Metabolic Pane krys 10-28-2021 Albumin [Mass/Vol] 3.6 g/dL Normal 3.2-5.5 [facility] Comment on above: Performed By: #### C KMB, HS TROP, CBC, PT, PTT, CMP, CK #### [facility] [address] Albumin/Globulin [Mass ratio] 1.4 {ratio} Normal [facility] Comment on above: Performed By: #### C KMB, HS TROP, CBC, PT, PTT, CMP, CK #### [address] ALP [Catalytic activity/Vol] 62 U/L Normal 32-92 [facility] Comment on above: Performed By: #### C KMB, HS TROP, CBC, PT, PTT, CMP, CK #### [address] ALT [Catalytic activity/Vol] 25 U/L Normal 10-60 [facility] Comment on above: Performed By: #### C KMB, HS TROP, CBC, PT, PTT, CMP, CK #### [address] AST [Catalytic activity/Vol] 23 U/L Normal 10-42 [facility] Comment on above: Performed By: #### C KMB, HS TROP, CBC, PT, PTT, CMP, CK #### [address] Bilirubin [Mass/Vol] 0.8 mg/dL Normal 0.3-1.2 [facility] Comment on above: Performed By: #### C KMB, HS TROP, CBC, PT, PTT, CMP, CK #### [address] Calcium [Mass/Vol] 9.1 mg/dL Normal 8.2-10.2 [facility] Comment on above: Performed By: #### C KMB, HS TROP, CBC, PT, PTT, CMP, CK #### [address] Chloride [Moles/Vol] 108 mmol/L Normal 95-114 [facility] Comment on above: Performed By: #### C KMB, HS TROP, CBC, PT, PTT, CMP, CK #### [address] CO2 [Moles/Vol] 23.9 mmol/L Normal 22.0-30.0 [facility] Comment on above: Performed By: #### C KMB, HS TROP, CBC, PT, PTT, CMP, CK #### [address] Creatinine [Mass/Vol] 1.50 mg/dL High 0.64-1.27 [facility] Comment on above: Performed By: #### C KMB, HS TROP, CBC, PT, PTT, CMP, CK #### [address] Creatinine Clr Calc Pharmacy 44.64 [facility] Comment on above: Result Comment: PERF ORMED BY: [place] [address] PATHOLOGIST PRESS ASSISTANT AND FEEDER LARS CORTEZ M.D. Performed By: #### C KMB, HS TROP, CBC, PT, PTT, CMP, CK #### [address] Estimated GFR ( Abi 56 [facility] Comment on above: Result Comment: GFR estimated reference range: According to KDOQI guidelines, <60 ml/min/1.73m2 is sufficient to diagnose a patient with chronic kidney disease. Performed By: #### C KMB, HS TROP, CBC, PT, PTT, CMP, CK #### [address] Estimated GFR (Non- Am 47 [facility] Comment on above: Performed By: #### C KMB, HS TROP, CBC, PT, PTT, CMP, CK #### [address] Globulin (S) [Mass/Vol] 2.6 g/dL Normal [facility] Comment on above: Performed By: #### C KMB, HS TROP, CBC, PT, PTT, CMP, CK #### [place] [id number] [place] Glucose [Mass/Vol] 107 mg/dL High 70-100 [facility] Comment on above: Result Comment: [facility] Glucose Reference Range is dependent on time and content of last meal. Glucose of more than 200 mg/dL in a nonstressed, ambulatory subject supports the diagnosis of Diabetes Mellitus. ADA recommended reference range Performed By: #### C KMB, HS TROP, CBC, PT, PTT, CMP, CK #### [facility] [address] Potassium [Moles/Vol] 4.1 mmol/L Normal 3.5-5.1 [facility] Comment on above: Performed By: #### C KMB, HS TROP, CBC, PT, PTT, CMP, CK #### [facility] [address] Protein [Mass/Vol] 6.2 g/dL Normal 6.1-7.9 [facility] Comment on above: Performed By: #### C KMB, HS TROP, CBC, PT, PTT, CMP, CK #### [facility] [address] Sodium [Moles/Vol] 140 mmol/L Normal 136-146 [facility] Comment on above: Performed By: #### C KMB, HS TROP, CBC, PT, PTT, CMP, CK #### [facility] [address] Urea nitrogen [Mass/Vol] 19 mg/dL Normal 9-23 [facility] Comment on above: Performed By: #### C KMB, HS TROP, CBC, PT, PTT, CMP, CK #### [facility] [address] [place] [address] [place] Creatine Kinaseon 10-28-2021 CK [Catalytic activity/Vol] 157 U/L Normal 22-269 [facility] Comment on above: Performed By: #### C KMB, HS TROP, CBC, PT, PTT, CMP, CK #### [facility] [address] [place] [address] [place] Creatine kinase [Enzymatic a ctivity/volume] in Serum or PlasmaOrdered By: Baljinder Mccormick on 10-28-2021 CK [Catalytic activity/Vol] 157 U/L 22-269 [facility] Creatinine Kinase MBon 10-28 CK.MB [Mass/Vol] 4.6 ng/mL Normal 0.6-6.3 [facility] Comment on above: Performed By: #### C KMB, HS TROP, CBC, PT, PTT, CMP, CK #### [facility] [address] CKMB Relative Index 2.9 % High 0.00-2.50 [facility] Comment on above: Performed By: #### C KMB, HS TROP, CBC, PT, PTT, CMP, CK #### [facility] [address] Creatinine and Glomerular fi ltration rate.predicted panel (S/P/Bld)Ordered By: Baljinder Mccormick on 10-28-2021 Creatinine [Mass/Vol] 1.50 mg/dL 0.64-1.27 [facility] ECG 12 lead ECGon 10-28-2021 ECG 12 lead ECG [facility] Main [place] [address] [place] [address] Electrocardiograph Report Signed Patient: Cheryl Mart MR#: [id number] 33 : 1955 Acct:[id number] Age/Sex: 66 / M ADM Date: 10/28/21 Loc: ER Room: Type: [facility] ER Attending Dr: Ordering Provider: Baljinder Mccormick MD Date of Service: 10/28/21 ECG/ECG 12 lead ECG: Syncope Copies to: Test Reason : Blood Pressure : 161/071 mmHG Vent. Rate : 065 BPM Atrial Rate : 065 BPM P-R Int : 156 ms QRS Dur : 086 ms QT Int : 442 ms P-R-T Axes : 062 061 043 degrees QTc Int : 459 ms Normal sinus rhythm Normal ECG No previous ECGs available Confirmed by BALJINDER MCCORMICK MD ([id number]) on 10/29/2021 1:25:56 AM Referred By: Electronically Signed By:BALJINDER MCCORMICK MD Transcribed By: MUS Signed By Baljinder Mccormick MD 10/29/21 0125 Normal [facility] Eosinophils Auto (Bld) [#/Vo l]Ordered By: Baljinder Mccormick on 10-28-2021 Eosinophils (Bld) [#/Vol] 0.0 10*3/uL 0.0-0.45 [facility] Eosinophils/100 WBC Auto (Bl d)Ordered By: Baljinder Mccormick on 10-28-2021 Eosinophils/100 WBC (Bld) 0.4 % [facility] Erythrocyte distribution wid th Auto (RBC) [Ratio]Ordered By: Baljinder Mccormick on 10-28-2021 Erythrocyte distribution width (RBC) [Ratio] 13.6 % 12.0-14.8 [facility] Estimated glomerular filtrat ion rate (GFR) non- AmericanOrdered By: Baljinder Mccormick on 10-28-2021 GFR/1.73 sq M.predicted among non-blacks MDRD (S/P/Bld) [Vol rate/Area] 47 mL/Min [facility] Ethyl Alcohol Profileon 10-11 Ethanol [Mass/Vol] mg/dL Normal [facility] Comment on above: Performed By: #### E JOSÉ ANTONIO #### [facility] [address] [place] [address] Percent Ethanol Not performed Normal [facility] Comment on above: Result Comment: PERF ORMED BY: [place] [address] PATHOLOGIST PRESS ASSISTANT AND FEEDER LARS CORTEZ M.D. Performed By: #### E JOSÉ ANTONIO #### [facility] [address] [place] [address] Globulin Calc (S) [Mass/Vol] Ordered By: Baljinder Mccormick on 10-28-2021 Globulin (S) [Mass/Vol] 2.6 g/dL [facility] Hematocrit Auto (Bld) [Volum e fraction]Ordered By: Baljinder Mccormick on 10-28-2021 Hematocrit (Bld) [Volume fraction] 40.4 % 38.8-50.0 [facility] Laboratory - CoagulationOrde red By: Baljinder Mccormick on 10-28-2021 PT Coag (PPP) [Time] 12.4 s 9.0-12.9 [facility] - Hematology and Cell countsOrdered By: Baljinder Mccormick on 10-28-2021 Nucleated RBC/100 WBC (Bld) [Ratio] 0.0 % 0-0.5 [facility] Lymphocytes Auto (Bld) [#/Vo l]Ordered By: Baljinedr Mccormick on 10-28-2021 Lymphocytes (Bld) [#/Vol] 0.6 10*3/uL 1.00-4.8 [facility] Lymphocytes/100 WBC Auto (Bl d)Ordered By: Baljinder Mccormick on 10-28-2021 Lymphocytes/100 WBC (Bld) 5.5 % [facility] MCH Auto (RBC) [Entitic mass ]Ordered By: Baljinder Mccormick on 10-28-2021 MCH (RBC) [Entitic mass] 31.6 pg 27.5-35.2 [facility] MCHC Auto (RBC) [Mass/Vol]Or dered By: Baljinder Mccormick on 10-28-2021 MCHC (RBC) [Mass/Vol] 33.7 g/dL 32.5-35.6 [facility] MCV Auto (RBC) [Entitic vol] Ordered By: Baljinder Mccormick on 10-28-2021 MCV (RBC) [Entitic vol] 93.7 fL 83.5-[address] [facility] Monocytes Auto (Bld) [#/Vol] Ordered By: Baljinder Mccormick on 10-28-2021 Monocytes (Bld) [#/Vol] 0.6 10*3/uL 0.0-0.8 [facility] Monocytes/100 WBC Auto (Bld) Ordered By: Baljinder Mccormick on 10-28-2021 Monocytes/100 WBC (Bld) 5.4 % F [facility] Neutrophils Auto (Bld) [#/Vo l]Ordered By: Baljinder Mccormick on 10-28-2021 Neutrophils (Bld) [#/Vol] 9.6 10*3/uL 1.8-7.7 [facility] Neutrophils/100 WBC Auto (Bl d)Ordered By: Baljinder Mccormick on 10-28-2021 Neutrophils/100 WBC (Bld) 88.5 % [facility] No Panel InformationOrdered By: Baljinder Mccormick on 10-28-2021 Estimated GFR () 56 mL/Min [facility] Comment on above: GFR estimated refere nce range: According to KDOQI guidelines, <60 ml/min/1.73m2 is sufficient to diagnose a patient with chronic kidney disease. Pharmacy Creatinine Clearance (Chem 44.64 [facility] Stool Occult Blood (FRED) [facility] Partial Thromboplastin Timeo n 10-28-2021 aPTT Coag (Bld) [Time] 28.6 s Normal 25.1-36.5 [facility] Comment on above: Result Comment: PERF ORMED BY: [facility] [address] [place] [address] PATHOLOGIST PRESS ASSISTANT AND FEEDER LARS CORTEZ M.D. Performed By: #### C KMB, HS TROP, CBC, PT, PTT, CMP, CK #### [facility] [address] [place] [id number] [facility] Platelet mean volume Auto (B ld) [Entitic vol]Ordered By: Baljinder Mccormick on 10-28-2021 Platelet mean volume (Bld) [Entitic vol] 9.0 fL 6.6-10.1 [facility] Platelet poor plasma interna tional normalized ratio (INR) by coagulation assay (relatOrdered By: Baljinder Mccormick on 10-28-2021 INR Coag (PPP) [Relative time] 1.1 {INR} [facility] Comment on above: INR Therapeutic Rang e A) Pre- and Peroperative OAT started two weeks before surgery. NOT HIP SURGERY: 1.5 - 2.5 HIP SURGERY: 2 - 3 B) Primary and secondary prevention of venous THROMBOSIS: 2 - 3 C) Active venous thrombosis, pulmonary embolism and prevention of recurrent venous thrombosis: 2 - 3 D) Prevention of arterial thromboembolism including patients with mechanical heart valves: 3 - 4.5 Platelets Auto (Bld) [#/Vol] Ordered By: Baljinder Mccormick on 10-28-2021 Platelets (Bld) [#/Vol] 218 10*3/uL 150-450 [facility] Protein [Mass/volume] in Ser um or PlasmaOrdered By: Baljinder Mccormick on 10-28-2021 Protein [Mass/Vol] 6.2 g/dL 6.1-7.9 [facility] Prothrombin Time INRon 10-28 INR Coag (PPP) [Relative time] 1.1 {INR} Normal [facility] Comment on above: Result Comment: INR Therapeutic Range A) Pre- and Peroperative OAT started two weeks before surgery. NOT HIP SURGERY: 1.5 - 2.5 HIP SURGERY: 2 - 3 B) Primary and secondary prevention of venous THROMBOSIS: 2 - 3 C) Active venous thrombosis, pulmonary embolism and prevention of recurrent venous thrombosis: 2 - 3 D) Prevention of arterial thromboembolism including patients with mechanical heart valves: 3 - 4.5 Performed By: #### C KMB, HS TROP, CBC, PT, PTT, CMP, CK #### [facility] [address] PT Coag (PPP) [Time] 12.4 s Normal 9.0-12.9 [facility] Comment on above: Performed By: #### C KMB, HS TROP, CBC, PT, PTT, CMP, CK #### [facility] [address] RBC Auto (Bld) [#/Vol]Ordere d By: Baljinder Mccormick on 10-28-2021 RBC (Bld) [#/Vol] 4.31 10*6/uL 3.90-5.60 [facility] Serum or plasma alanine bradford otransferase measurement without P-5'-P (enzymatic activiOrdered By: Baljinder Mccormick on 10-28-2021 ALT No additional P-5'-P [Catalytic activity/Vol] 25 U/L 10-60 [facility] Serum or plasma albumin/glob ulin mass ratioOrdered By: Baljinder Mccormick on 10-28-2021 Albumin/Globulin [Mass ratio] 1.4 {ratio} [facility] Serum or plasma alkaline vanessa sphatase measurement (enzymatic activity/volume)Ordered By: Baljinder Mccormick on 10-28-2021 ALP [Catalytic activity/Vol] 62 U/L 32-92 [facility] Serum or plasma aspartate am inotransferase measurement (enzymatic activity/volume)Ordered By: Baljinder Mccormick on 10-28-2021 AST [Catalytic activity/Vol] 23 U/L 10-42 [facility] Serum or plasma calcium mariam urement (mass/volume)Ordered By: Baljinder Mccormick on 10-28-2021 Calcium [Mass/Vol] 9.1 mg/dL 8.2-10.2 [facility] Serum or plasma chloride lala surement (moles/volume)Ordered By: Baljinder Mccormick on 10-28-2021 Chloride [Moles/Vol] 108 mmol/L 95-114 [facility] Serum or plasma creatine kin ase MB (CKMB)/total creatine kinase (CK) ratio by calculaOrdered By: Baljinder Mccormick on 10-28-2021 CK.MB Calc [Catalytic fraction] 2.9 % 0.00-2.50 [facility] Serum or plasma creatine kin ase MB measurement (mass/volume)Ordered By: Baljinder Mccormick on 10-28-2021 CK.MB [Mass/Vol] 4.6 ng/mL 0.6-6.3 [facility] Serum or plasma ethanol mariam urement (mass/volume)Ordered By: Baljinder Mccormick on 10-28-2021 Ethanol [Mass/Vol] mg/dL [facility] Ethanol [Mass/Vol] TNP [facility] Comment on above: Test not performed Serum or plasma glucose mariam urement (mass/volume)Ordered By: Baljinder Mccormick on 10-28-2021 Glucose [Mass/Vol] 107 mg/dL 70-100 [facility] Comment on above: ADA recommended refe rence range Random Glucose Reference Range is dependent on time and content of last meal. Glucose of more than 200 mg/dL in a nonstressed, ambulatory subject supports the diagnosis of Diabetes Mellitus. Serum or plasma potassium me asurement (moles/volume)Ordered By: Baljinder Mccormick on 10-28-2021 Potassium [Moles/Vol] 4.1 mmol/L 3.5-5.1 [facility] Serum or plasma sodium measu rement (moles/volume)Ordered By: Baljinder Mccormick on 10-28-2021 Sodium [Moles/Vol] 140 mmol/L 136-146 [facility] Serum or plasma total biliru bin measurement (mass/volume)Ordered By: Baljinder Mccormick on 10-28-2021 Bilirubin [Mass/Vol] 0.8 mg/dL 0.3-1.2 [facility] Serum or plasma total carbon dioxide measurement (moles/volume)Ordered By: Baljinder Mccormick on 10-28-2021 CO2 [Moles/Vol] 23.9 mmol/L 22.0-30.0 [facility] Serum or plasma urea nitroge n measurement (mass/volume)Ordered By: Baljinder Mccormick on 10-28-2021 Urea nitrogen [Mass/Vol] 19 mg/dL 02-02 [facility] Stool Occult Bl. Scr. (Guaia c)on 10-28-2021 Stool Occult Bl. Scr. (Guaiac) Occult Blood Negative for Occult Blood by Guaiac Methodology Reference range = Negative PERFORMED BY: [place] [address] PATHOLOGIST PRESS ASSISTANT AND FEEDER LARS CORTEZ M.D. [facility] Comment on above: Performed By: #### O BS-GUAIAC #### [facility] [address] [place] [address] Troponin I High Sensitivityo n 10-28-2021 Troponin I High Sensitivity 15 pg/mL Normal 0-20 [facility] Comment on above: Result Comment: PERF ORMED BY: [place] [address] PATHOLOGIST PRESS ASSISTANT AND FEEDER LARS CORTEZ M.D. Performed By: #### O BS-GUAIAC #### [facility] [address] [place] [address] Troponin I.cardiac [Mass/vol ume] in Serum or Plasma by High sensitivity methodOrdered By: Baljinder Mccormick on 10-28-2021 Troponin I.cardiac High sensitivity method [Mass/Vol] 15 pg/mL 0-20 [facility] Vital Signs Date Time Vital Sign Value Performing Clinician [employer] 02-11-2024 13:18-0400 Blood Pressure Location Cheryl ALYSIA [facility] [place] 02-11-2024 13:18-0400 Diastolic blood pressure 84 mm[Hg] Cheryl CERDA [facility] 02-11-2024 13:18-0400 Heart rate 72 /min Cheryl CERDA [facility] 02-11-2024 13:18-0400 Respiratory rate 16 /min Cheryl CERDA [facility] 02-11-2024 13:18-0400 Systolic blood pressure 146 mm[Hg] Cheryl CERDA [facility] 10-28-2021 20:39-0400 Diastolic blood pressure 68 mm[Hg] MD Baljinder Mccormick Work Phone: [facility] 10-28-2021 20:39-0400 Heart rate 71 /min MD Baljinder Mccormick Work Phone: [facility] 10-28-2021 20:39-0400 Respiratory rate 20 /min MD Baljinder Mccormick Work Phone: [facility] 10-28-2021 20:39-0400 SaO2% (BldA) [Mass fraction] 99 % MD Baljinder Mccormick Work Phone: [facility] 10-28-2021 20:39-0400 Systolic blood pressure 142 mm[Hg] MD Baljinder Mccormick Work Phone: [facility] 10-28-2021 18:30-0400 Body height 162.56 cm MD Baljinder Mccormick Work Phone: [facility] 10-28-2021 18:30-0400 Body mass index (BMI) [Ratio] 28.8 kg/m2 MD Baljinder Mccormick Work Phone: [facility] 10-28-2021 18:30-0400 Body weight 76.3 kg MD Baljinder Mccormick Work Phone: [facility] 10-28-2021 18:27-0400 Body temperature 97.4 [degF] MD Baljinder Mccormick Work Phone: [facility] Encounters Encounter Date Encounter Type Care Provider Facility Start: 02-11-2024 End: 02-11-2024 ambulatory Cheryl Dorian ALYSIA Facility:[facility] Start: 02-11-2024 End: 02-11-2024 Patient encounter procedure Cheryl CERDA [facility] [place] Start: 09-25-2022 End: 09-26-[address] LASHAUN SANDERS . Facility: Start: 09-12-2022 End: 09-13-[address] LASHAUN SANDERS . Facility: Start: 04-11-2022 Encounter for genera l adult medical examination without abnormal findings DR LASHAUN SANDERS . [facility] Start: 04-06-2022 End: 04-07-[address] LASHAUN SANDERS . Facility: Start: 04-06-2022 End: 04-07-2022 Encounter for general adult medical examination without abnormal findings DR LASHAUN SANDERS . Facility: Start: 11-28-2021 End: 11-29-[address] LASHAUN SANDERS . Facility: Start: 11-15-2021 End: 11-16-[address] LASHAUN SANDERS . Facility: Start: 11-08-2021 End: 11-09-[address] LASHAUN SANDERS . Facility: Start: 10-31-2021 End: 10-31-2021 ambulatory UNKNOWN PROVIDER Facility:[facility] Start: 10-30-2021 End: 10-31-[address] LASHAUN SANDERS . Facility: Start: 10-28-2021 End: 10-28-2021 ambulatory UNKNOWN PROVIDER Facility:[facility] Start: 10-28-2021 End: 10-28-2021 Emergency department patient visit Baljinder Mccormick Facility:[facility] Start: 10-28-2021 End: 10-28-2021 Emergency department patient visit MD Baljinder Mccormick Work Phone: [facility] Procedures Date Procedure Procedure Detail Performing Clinician Start: 04-06-[address] DENI SANDERS . Comment on above: Performed By: #### P SASC #### [facility] [address] [address] [address] Dominga Greenfield Start: 10-28-2021 Stool Occult Blood (FRED) MD Baljinder Mccormick Work Phone: Start: 05-11-2020 Colonoscopy Cheryl NI LL Start: 10-20-2012 Colonoscopy Cheryl NI LL Start: 03-05-2008 Colonoscopy Cheryl NI LL Arthroplasty Cheryl NILL Comment on above: right and left shoul ders Bilateral inguinal h ernia repair Cheryl NILL Lumbar spinal fusion Cheryl NILL Comment on above: L4-L5 Plan of Treatment Date Care Activity Detail Author Start: 10-28-2021 Plain chest X-ray XR chest 1V portab le [facility] Patient Education Diarrhea, Adul t ED Dehydration, Adult ED [facility] Work Phone: Patient referral [facility] Work Phone: Immunizations Immunization Date Immunization Notes Care Provider Fa [facility] 03-05-2023 influenza virus vaccine, unspecified formulation Cheryl NILL [facility] 02-15-2021 SARS-CoV-2 (COVID-19 ) mRNA BNT-162b2 vax Cheryl NILL [facility] Comment on above: Result Comment: 2023: [id number] 07-01-2020 SARS-CoV-2 (COVID-19 ) mRNA BNT-162b2 vax Cheryl NILL [facility] Comment on above: Result Comment: 2023: [id number] 06-10-2020 SARS-CoV-2 (COVID-19 ) mRNA BNT-162b2 vax Cheryl NILL [facility] [place] Comment on above: Result Comment: 2023: [id number] Payers Date Payer Category Payer Medicare [id number] 2021 Medicare [id number] 2021 Self-pay [id number] 2021 Unknown 1 2021 Unknown 9 1959 Private Health Insurance [id number] 1955 Unknown [id number] 2.16. [id number] 1955 Unknown [id number] 2.16. [id number] 1955 Unknown [id number] 2.16.84 [id number] 1955 Unknown [id number] 2.16.84 [id number] 1955 Unknown [id number] 2.16.84 [id number] 1955 Unknown [id number] 2.16.84 [id number] 1955 Unknown [id number] 2.16.84 [id number] 1955 Unknown [id number] 2.16.84 [id number] 1955 Unknown [id number] 2.16.84 [id number] 1955 Unknown [id number] 2.16.8 [id number] Unknown [id number] 2.16.8 [id number] Social History Date Type Detail Facility Start: 10-28-2021 End: 02-11-2024 Tobacco smoking status NHIS Never smoked tobacco (finding) [facility] Start: 1955 Sex Assigned At Male F [facility] Tobacco smoking status Never [facility] Sex Assigned At Male [facility] Functional Status Date Assessment Result Facility 02-11-2024 Functional Status N/A [facility] Clinical Note 02-11-2024 Note Date & Type Note Facility 02-11-2024 Note General Surgery Offi ce/Clinic Note Chief Complaint consultation for GERD and colonoscopy HPI Staff 69 year old male presents on consultation from Dr. Sanders for surveillance colonoscopy. Last colonoscopy 04/2020 with villous adenoma x 3. Denies abdominal or rectal pain. No rectal bleeding or change in bowel habits. Denies nausea or vomiting. No unexplained weight loss. No known family history of colon cancer, patient is adopted. History of Present Illness 69 yo male with h/o DMII, hypercholesterolemia, GERD, BPH, presents for surveillance colonoscopy; last colonoscopy 4 years ago with removal of villous adenomas x 2 in ascending colon, and 1.2 cm tubulovillous adenoma in sigmoid colon; patient denies change in bms or blood in stools, no abd complaints; abd operations significant for bilateral inguinal hernia repairs; no asa or NSAID use; no tobacco use; no fmhx of GI malignancy or IBD. patient denies GERD symptoms or dysphagia. Review of Systems PHQ Score Initial Depression Screen Score: 0 SCORE ROS - Provider Constitutional: no fever, no sweats, no weight loss. Eyes: no glasses, no blurred vision, no visual loss. ENMT: no dentures, no hoarseness, no swallowing difficulties, no hearing loss, no ear infection(s), no nose bleeds. Cardiovascular: normal blood pressure, no chest pain, regular heartbeat, no heart murmur. Respiratory: no shortness of breath, no cough, no asthma, no wheezing. Gastrointestinal: no nausea, no vomiting, no diarrhea, no constipation, no blood in stool, no change in bowel habits, no abdominal pain, no hepatitis. Genitourinary: no kidney stones, no urine infection, no dysuria. Musculoskeletal: no pain, no weakness. Skin: no changing moles, no rash, no skin lumps. Neurologic: no seizures, no epilepsy, no headache. Psychiatric: no emotional or psychiatric problem. Heme/Lymph: no bleeding problems, no anemia, no blood clots, no transfusions. Allergy/Immunologic: no swollen lymph nodes/glands, no IV drug abuse. Other: Additional ROS info: Except as noted in the above Review of Systems and in the History of Present Illness, all other systems have been reviewed and are negative or noncontributory. Physical Exam Vitals & Measurements HR: 72(Peripheral) RR: 16 BP: 146/84 HT: 64 in HT: 162.5 cm WT: 82.6 kg WT: 181.72 lb BMI: 31.28 HEENT: normal conjunctiva, sclera clear, no scleral icterus, EOM intact, PERRLA, oral mucosa moist without lesions. Neck: trachea midline, no mass, symmetric, no thyromegaly or nodules, no adenopathy Respiratory: lungs CTA, respirations non labored. Cardiovascular: regular rate and rhythm, no murmur, no pedal edema or varicosities. Gastrointestinal: soft, non distended, no tenderness, no masses, no palpable hernias, diastasis recti no, no hepatosplenomegaly; normal bs Lymphatic: no cervical adenopathy, no supraclavicular adenopathy. Musculoskeletal: normal gait, digits and nails without infection, nodes, cyanosis, clubbing. Skin: no rashes, no lesions, no ulcers, no subcutaneous nodules, induration. Psychiatric/Neuro: oriented to time, place, person, judgement normal, affect appropriate for age, insight intact, no focal deficits. Tests: , review of old records completed , Discussed surgical options, risks, and possible complications with patient. Assessment/Plan 1. Personal history of colonic polyps (Z86.010: Personal history of colonic polyps) plan colonoscopy under anesthesia, informed consent obtained. Follow-up No qualifying data available Problem List/Past Medical History Ongoing BMI 31.0-31.9,adult BPH (benign prostatic hyperplasia) Diabetes Dyshidrotic eczema GERD (gastroesophageal reflux disease) History of colon polyps History of diverticulitis Impotence Obesity due to excess calories Orthostatic hypotension Personal history of colonic polyps Positive fecal occult blood test PVT (paroxysmal ventricular tachycardia) Rotator cuff tear Shoulder impingement syndrome Tremor Tubulovillous adenoma of colon Ulcerative proctitis Venous insufficiency Historical No qualifying data Procedure/Surgical History Colonoscopy (05/11/2020), Colonoscopy (10/20/2012), Colonoscopy (03/05/2008), Arthroplasty, Bilateral inguinal hernia repair, Fusion of lumbar spine. Medications atorvastatin 20 mg Tab, 20 mg= 1 tab(s), Oral, Daily Flomax 0.4 mg Cap, 0.4 mg= 1 cap(s), Oral, Daily lansoprazole 30 mg Cap-DR, 30 mg= 1 cap(s), Oral, Daily metformin 500 mg Tab, 500 mg= 1 tab(s), Oral, BID Metoprolol tartrate 25 mg Tab, 25 mg= 1 tab(s), Oral, BID primidone 50 mg Tab, 50 mg= 1 tab(s), Oral, BID Allergies No Known Allergies No Known Medication Allergies Social History Alcohol Current, Beer, 1-2 times per week, 05/03/2020 Substance Abuse - Denies Substance Abuse, 05/03/2020 Tobacco Never (less than 100 in lifetime) Tobacco Use:. Never Smokeless Tobacco Use:., 02/11/2024 Family History Patient was adopted Immunizatio (more content not included)... [facility] Comment on above: Result Comment: Elec tronically Signed By: ALYSIA MONSON, Cheryl Cespedes\Date and Time Signed: 02/11/24 13:40 EDT Evaluation + Plan note Note Date & Type Note Facility Evaluation + Plan note No data available for this section [facility] Evaluation note Note Date & Type Note Facility Evaluation note No assessment information availa [facility] Work Phone: Hospital Discharge instructions Note Date & Type Note Facility Hospital Discharge instructions Additional Instructions Follow-up with your private physicians about the episodes you are having when you get sweaty and have diarrhea. Return if symptoms are worse Lots of fluids [facility] Work Phone: Hospital Discharge instructions Note Date & Type Note Facility Hospital Discharge instructions No data available for this section [facility] Progress note Note Date & Type Note Facility Progress note No data available for this section [facility] Evangelist Chief Complaint and Reason for Visit Chief Complaint SYNCOPE Advance Directives Advance Directive Response Recorded Date/ Time Advance Directives No October 28 6:52pm Summary Purpose Family History No Family History Records FoundNo Family History Records FoundNo Family History Records FoundNo Family History Records Found No data available for this section Additional Source Comments Care Teams (unrecognized sec tion and content) Personnel Name: Lashaun Sanders MD Address: Address: [address] [place] [address] Team Status: Inactive Member Role Status Dates Baljinder Mccormick MD Emergency Provider Active Lashaun Sanders MD Primary Care Provider Active Team Status: Active Member Role Status Dates Lashaun Sanders MD Primary Care Provider Active Goals (unrecognized section and content) Goals may be documented in a n alternate section No data available for this section (unrecognized sect ion and content) No Status Records FoundNo Status Records FoundNo Status Records FoundNo Status Records Found INFORMATION SOURCE (unrecogn ized section and content) DATE CREATED AUTHOR 12/03/2021 [employer] DATE CREATED AUTHOR AUTHOR'S ORGANIZ ATION 06/16/[address] [facility] DATE CREATED AUTHOR AUTHOR'S ORGANIZ ATION 09/26/2022 [facility] DATE CREATED AUTHOR AUTHOR'S ORGANIZ ATION 02/13/2024 [facility] FOR RECORDS PERTAINING TO PATIENTS WHO ARE OR HAVE BEEN ENROLLED IN A CHEMICAL DEPENDENCY/SUBSTANCEABUSE PROGRAM, SOME INFORMATION MAY BE OMITTED. This clinical summary was aggregated from multiple sources. Caution should be exercised in using it in the provision of clinical care. This summary normalizes information from multiple sources, and as a consequence, information in this document may materially change the coding, format and clinical context of patient data. In addition, data may be omitted in some cases. CLINICAL DECISIONS SHOULD BE BASED ON THE PRIMARY CLINICAL RECORDS. [facility] [employer] [facility] provides no warranty or guarantee of the accuracy or completeness of information in this document.
[2024-02-19 08:25] VITALS: BP 162/81; PULSE 68; TEMP 35.8; O2SAT 98; BMI 29.5
[2024-02-19 08:40] LABS: Glucometer 185 mg/dL (74-106)
[2024-02-19] MEDS: 0.9 % SODIUM CHLORIDE 500 ML 50 ML IV (08:48)
[2024-02-19 10:32] VITALS: BP 126/78; PULSE 85; TEMP 36.3; O2SAT 95
[2024-02-19 10:47] VITALS: BP 129/86; PULSE 68; O2SAT 96
[2024-02-19 11:02] VITALS: BP 156/86; PULSE 68; O2SAT 98
== END 2024-02-19 11:02 | disposition home or self-care (01) ==
PROVIDERS: PCP Family Medicine; Visit Provider Surgery
PROC: (CPT 45380; principal; 2024-02-19 09:25)
DX: D12.2 Benign neoplasm of ascending colon (principal); Z86.0100 Personal history of colon polyps, unspecified; D12.5 Benign neoplasm of sigmoid colon; E11.9 Type 2 diabetes mellitus without complications; E78.00 Pure hypercholesterolemia, unspecified; K21.9 Gastro-esophageal reflux disease without esophagitis; N40.0 Benign prostatic hyperplasia without lower urinary tract symptoms; Z98.1 Arthrodesis status; Z79.84 Long term (current) use of oral hypoglycemic drugs; I10 Essential (primary) hypertension
CPT/HCPCS: 45380; 45385; 36415; 82948; 88305; J2704

== ENCOUNTER 2025-02-05 07:06 | Outpatient (OUT) | payer MEDICARE, SELFPAY ==
--- OUTSIDE RECORDS SUMMARY | 2025-02-05 07:14 | XMS_ITS | CCD ---
Author Organization 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 Name Role Phone MD Bakari Mccormick Emergency Provider MD Lashaun Sanders Primary Care Provider [phone] PROVIDER, UNKNOWN Admitting Unavailable PROVIDER, UNKNOWN Attending Unavailable PROVIDER, UNKNOWN Admitting Unavailable PROVIDER, UNKNOWN Attending Unavailable HOY ., DR WILKS Consulting Unavailable HOY ., DR WILKS Admitting Unavailable HOY ., DR WILKS Attending Unavailable HOY ., DR WILKS Primary Care Unavailable Alonso Cash Consulting Unavailable HOY ., DR WILKS Admitting Unavailable HOY ., DR WILKS Attending Unavailable HOY ., DR WILKS Consulting Unavailable HOY ., DR WILKS Primary Care Unavailable WEST, DR YONI Kirkland Consulting Unavailable Alonso Cash Consulting Unavailable HOY ., DR WILKS Admitting Unavailable HOY ., DR WILKS Attending Unavailable HOY ., DR WILKS Consulting Unavailable HOY ., DR WILKS Primary Care Unavailable WEST, DR YONI Kirkland Consulting Unavailable HOY ., DR WILKS Admitting [...] ., DR WILKS Consulting Unavailable YONI BLEDSOE Consulting Unavailable EMI MARTINEZ Consulting Unavailable HOY ., DR WILKS Primary Care Unavailable HOY ., DR WILKS Admdeon Unavailable HOY ., DR WILKS Attending Unavailable HOY ., DR WILKS Consulting Unavailable Lashaun Sanders Primary Care Physician MD Cheryl Cerda Attending Provider Cheryl Cerda Attending Unavailable Cheryl Cerda Admitting Unavailable Cheryl CERDA Attending Unavailable FranklinLashaun garcia Referring Unavailable Cheryl CERDA Attending Unavailable Cheryl CERDA Attending Unavailable Allergies Allergy Classification Reported Allergen(s) Allergy Type Date of Onset Reaction(s) Facility (1 source) No Known Medication Allergies; Translations: [No Known Medication Allergies] Propensity to adverse reactions (disorder) [facility] Repository Medications Current Medications Medication Drug Class(es) Dates Sig (Normalized) Sig (Original) atorvastatin 20 mg oral tablet (4 sources) HMG-CoA Reductase Inhibitor Start: 05-02-2020 take 1 tablet by mouth once daily atorvastatin 20 mg Tab 20 mg = 1 tab(s), Oral, Daily, Refills(s) 0 Start Date: 05/02/20 Status: Ordered lansoprazole 15 mg delayed release oral capsule (4 sources) Proton Pump Inhibitor Start: 10-28-2021 take 1 capsule by mouth once daily Lansoprazole (Prevacid) 15 mg Capsule,Delayed Release(Dr/Ec) Active 15 MG PO Daily October 28, 2021 6:31pm Start: 05-02-2020 take 1 capsule by [facility] once daily lansoprazole 30 mg Cap-DR 30 mg = 1 cap(s), Oral, Daily, Refills(s) 0 Start Date: 05/02/20 Status: Ordered metFORMIN hydrochloride 500 mg oral tablet (2 sources) Biguanide Start: 01-23-2024 take 1 tablet by mouth twice daily metformin 500 mg Tab 500 mg = 1 tab(s), Oral, BID, Refills(s) 0 Start Date: 01/23/24 Status: Ordered metoprolol tartrate 25 mg oral tablet (2 sources) beta-Adrenergic Omar Start: 01-23-2024 take 1 tablet by mouth twice daily Metoprolol tartrate 25 mg Tab 25 mg = 1 tab(s), Oral, BID, Refills(s) 0 Start Date: 01/23/24 Status: Ordered primidone 50 mg oral tablet (4 sources) Anti-epileptic Agent Start: 02-11-2024 take 1 tablet by mouth twice daily primidone 50 mg Tab 50 mg = 1 tab(s), Oral, BID, Refills(s) 0 Start Date: 02/11/24 Status: Ordered Start: 10-28-2021 take 10 mg by mouth once Primi done Active 10 MG PO Once October 28, 2021 6:31pm tamsulosin hydrochloride 0.4 mg oral capsule (2 sources) alpha-Adrenergic Omar Start: 05-02-2020 take 1 capsule by mouth once daily Flomax 0.4 mg Cap 0.4 mg = 1 cap(s), Oral, Daily, Refills(s) 0 Start Date: 05/02/20 Status: Ordered Problems Active Problems Problem Classification Problem Date Documented Da te Episodic/Chronic Allergic reactions (2 sources) 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 Anal and rectal conditions (2 sources) Proctitis 05-02-2020 Episodic Cardiac dysrhythmias (2 sources) Paroxysmal ventricular tachycardia 01-23-2024 Chronic Diabetes mellitus without complication (2 sources) Diabetes mellitus 01-23-2024 Chronic Esophageal disorders (2 sources) Gastroesophageal reflux disease 05-02-2020 Chronic Fluid and electrolyte disorders (2 sources) Dehydration; Translations: [Dehydration] 10-28-2021 Episodic Hyperplasia of prostate (2 sources) Benign prostatic hyperplasia 05-02-2020 Chronic Other and unspecified benign neoplasm (5 sources) History of polyp of colon; Translations: [Personal history of colonic polyps] Onset: 4 Episodic Other and unspecified benign neoplasm (2 sources) Adenomatous polyp of colon 05-19-2020 Episodic Other and unspecified benign neoplasm (2 sources) Benign neoplasm of ascending colon; Translations: [Benign neoplasm of ascending colon] Onset: 4 Episodic Other and unspecified benign neoplasm (2 sources) Benign neoplasm of sigmoid colon; Translations: [Benign neoplasm of sigmoid colon] Onset: 4 Episodic Other circulatory disease (2 sources) Orthostatic hypotension 05-02-2020 Episodic Other circulatory disease (2 sources) Vascular insufficiency 01-23-2024 Episodic Other connective tissue disease (1 source) Pain in right lower leg; Translations: [PAIN IN RIGHT LOWER LEG] Onset: 3 Episodic Other connective tissue disease (1 source) Pain in left lower leg; Translations: [PAIN IN LEFT LOWER LEG] Onset: 3 Episodic Other connective tissue disease (2 sources) Disorder of rotator cuff 05-02-2020 Episodic Other connective tissue disease (2 sources) Impingement syndrome of shoulder region 05-02-2020 Episodic Other gastrointestinal disorders (2 sources) Diarrhea; Translations: [Diarrhea, unspecified] 10-28-2021 Episodic Other gastrointestinal disorders (2 sources) History of diverticulitis 05-02-2020 Episodic Other gastrointestinal disorders (2 sources) Occult blood in stools 05-03-2020 Episodic Other male genital disorders (2 sources) Impotence 05-02-2020 Chronic Other nervous system disorders (2 sources) Tremor 05-02-2020 Episodic Other non-traumatic joint disorders (4 sources) Pain in left knee; Translations: [PAIN IN LEFT KNEE] Onset: Episodic Other nutritional; endocrine; and metabolic disorders (2 sources) Body mass index 30+ - obesity 02-11-2024 Chronic Other nutritional; endocrine; and metabolic disorders (2 sources) 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 History of Present Illness s/p colonoscopy with polypectomy x 3 for small tubular adenomas, had h/o large tubulovillous adenomas in past; doing well, denies pain or rectal bleeding. Review of Systems PHQ Score Initial Depression [...] been reviewed and are negative or noncontributory. Assessment/Plan 1. Benign neoplasm of ascending colon (D12.2: Benign neoplasm of ascending colon) plan surveillance colonoscopy in 5 years, call sooner if problems/questions. 2. Benign neoplasm of sigmoid colon (D12.5: Benign neoplasm of sigmoid colon) see # 1 Follow-up No qualifying data available Problem List/Past Medical History Ongoing Benign neoplasm of ascending colon Benign neoplasm of sigmoid colon BMI 31.0-31.9,adult BPH (benign prostatic hyperplasia) Diabetes [...] Historical No qualifying data Procedure/Surgical History Colonoscopy (02/19/2024), Colonoscopy (05/11/2020), Colonoscopy (10/20/2012), Colonoscopy (03/05/2008), Arthroplasty, [...] Use:., 02/11/2024 Family History Patient was adopted Immunizations Vaccine Date Status Comments influenza virus vaccine, inactivated 03/05/2023 Recorded SARS-CoV-2 (COVID-19) mRNA BNT-162b2 vax 02/15/2021 Recorded 2024-01-23: TPV65 SARS-CoV-2 (COVID-19) mRNA BNT-162b2 vax 07/01/2020 Recorded 2024-01-23: TPV19 SARS-CoV-2 (COVID-19) mRNA BNT-162b2 vax 06/10/2020 Recorded 2024-01-23: TPV65 [facility] Comment on above: Result Comment: Elec tronically Signed By: ALYSIA MONSON, Cheryl Weston.[email or web address]\Date and Time Signed: 03/10/24 20:13 EDT Reminderson 03-10-2024 Reminders Reminders - From: Stephanie Rodriguez LPN To: N - Clinical; Sent: 03/10/2024 14:52:24 EDT Show up: 01/19/2029 07:00:00 EDT Subject: colonoscopy recall Due Date/Time: 02/18/2029 07:00:00 EDT Reminder/Recall Patient due for surveillance colonoscopy 02/18/2029 due to history of polyps. Normal [facility] Rodri 02-19-2024 L Specimen: [id number] Received: 02/20/24 Status: LIZBET Montoya Num: [id number] Spec Type: Surgical Subm Dr: Cheryl Cerda MD FACS Tissues: A Colon Biopsy (ASCENDING COLON POLYP) B Colon Biopsy (SIGMOID POLYP) Procedures: HE/4, Gross/Micro L4/2 Age/ Patient Sex Location Account Attending Physician Cheryl Mart 69/M LABELL [id number] Cheryl Cerda MD FACS SPEC NUM: [id number] RECD: 02/20/24 STATUS: LIZBET MONTOYA NUM: [id number] GISSELL: 02/19/[address] [facility] [address]: Cheryl Cerda MD FACS ENTERED: 02/20/[address] [facility] [address]: Lorraine Blanca SPEC TYPE: Surgical DEPT: JENNIFER BIGGS ENTERED BY: [id number] RECV BY: [id number] ORDERED: HE/4, Gross/Micro L4/2 ORDERED: HE/4, Gross/Micro L4/2 Pathological Diagnosis A, ascending colon polyp biopsy -Multiple fragments (3) of tubular adenomatous polyp B, sigmoid polyp biopsy: -Consistent with small fragments of low-grade adenomatous polyp Clinical Information Ascending colon polyp, sigmoid polyp Gross Description Part a received in formalin with the patient's name and ascending colon polyp and consists of 3 dasilva irregular shaped portions ranging in size from 0.6 to 0.4 cm. The specimen is entirely submitted in cassette A1. Part B received in formalin with the patient's name and sigmoid polyp and consists of 3 dasilva irregular shaped portions of soft tissue ranging in size from 0.2 to 0.4 cm in greatest dimension. The specimen is entirely submitted in cassette B1 Specimen: [id number] Received: 02/20/24 Status: LIZBET Montoya Num: [id number] Spec Type: Surgical Subm Dr: Cheryl Cerda MD FACS Tissues: A Colon Biopsy (ASCENDING COLON POLYP) B Colon Biopsy (SIGMOID POLYP) Procedures: HE/4, Gross/Micro L4/2 Patient: Cheryl Mart [id number] (Continued) Specimen: [id number] Received: 02/20/24 (Continued) Signed (signature on file) Santosh Greenfield MD 02/22/24 1057 Specimen: [id number] Received: 02/20/24 Status: CELIAKanwal Montoya Num: [id number] Spec Type: Surgical Subm Dr: Cheryl Cerda MD FACS Tissues: A Colon Biopsy (ASCENDING COLON POLYP) B Colon Biopsy (SIGMOID POLYP) Procedures: Cassidy ESPINOZA/Nicolas L4/2 Patient: Cheryl Mart [id number] (Continued) Specimen: [id number] Received: 02/20/24 (Continued) Microscopic Description Microscopic examinations are performed supporting the above interpretation CPT Codes 27570w3 Specimen: [id number] Received: 02/20/24 Status: LIZEBT Montoya Num: [id number] Spec Type: Surgical Subm Dr: Cheryl Cerda MD FACS Tissues: A Colon Biopsy (ASCENDING COLON POLYP) B Colon Biopsy (SIGMOID POLYP) Procedures: HE/Luis Carlos, Gross/Micro L4/2 Patient: Cheryl Mart [id number] (Continued) Signed (signature on file) Tom-Rivas Greenfield MD 02/22/24 1057 Normal [facility] Ambulatory Visit Summaryon 1 Ambulatory Visit Summary Ambulatory Visit Summary ASHLY CHERYL Simon :1955 Visit Date:02/11/2024 Ambulatory Visit Instructions Your Diagnosis Personal history of colonic polyps Your Care Team Attending Physician - ALYSIA MONSON, Cheryl Alarcon Primary Care Physician - Tommy MONSON, Lashaun Referring Physician - Lashaun Sanders MD This [...] you for choosing us for your care. [facility] Provider Letteron 01-14-2024 Provider Letter Provider Letter January 14, 2024 CHERYL VANJUSTICE [address] [place] [phone] : 1955 Dear Mr. Mart, We have been trying to reach you with no success regarding a referral from Dr Sanders. It is important that you return our call upon receiving this letter. Also, at the time of your call, please provide us with your current information. Thank you for your prompt attention to this matter. Sincerely, [facility] Surgery [phone] [facility] Provider Letteron 05-03-2023 Provider Letter May 03, 2023 CHERYL MART [address] [place] [phone] : 1955 Dear Cheryl, We have been trying to reach you with no success. It is important that you return our call upon receiving this letter. Also, at the time of your call, please provide us with your current information. Thank you for your prompt attention to this matter. Sincerely, Dr. Cheryl Cerda MD General Surgery [facility] Provider Letteron 04-22-2023 Provider Letter April 22, 2023 CHERYL MART [address] [place] [phone] : 1955 Dear Cheryl, We have been trying to reach you with no success. It is important that you return our call upon receiving this letter. Also, at the time of your call, please provide us with your current information. Thank you for your prompt attention to this matter. Sincerely, Dr. Cheryl Cerda MD General Surgery Normal [facility] MRI KNEE LT WO CONon 023 MRI KNEE LT WO CON EXAMINATION: [...] by: ALONSO CASH Date: 2022-09-25 09:35 Normal [facility] US BERT DOP LEG BILon 023 US [...] YONI BLEDSOE Date: 2022-09-12 10:[address] [facility] XR KNEE LT 4V or >on 023 [...] EMI MARTINEZ Date: 2022-09-12 14:[address] [facility] INSULINon 04-07-2022 Insulin 14.1 uIU/mL Normal 2.6-24.9 [facility] Comment on above: Performed By: #### I NSULIN #### [facility] [address] [address] [address] Dominga Greenfield CBC AUTO DIFFon 04-06-2022 BASO # 0.0 103/ul Normal 0.0-0.1 [facility] Comment on above: Performed By: #### C BC #### [facility] [address] [address] [address] Dominga Greenfield Basophils/100 WBC (Bld) 0.6 % Normal 0.2-2.0 [facility] Comment on above: Performed By: #### C BC #### [facility] [address] [place] [address] Dr. Dominga Greenfield EO # 0.1 103/ul Normal 0.0-0.[address] [facility] Comment on above: Performed By: #### C BC #### [facility] [address] [place] [address] Dr. Dominga Greenfield Eosinophils/100 WBC (Bld) 2.4 % Normal 0.9-7.0 [facility] Comment on above: Performed By: #### C BC #### [facility] [address] [place] [address] Dr. Dominga Greenfield Erythrocyte distribution width (RBC) [Ratio] 12.5 % Normal 11.0-15.0 [facility] Comment on above: Performed By: #### C BC #### [facility] [address] [place] [address] Dr. Dominga Greenfield Hematocrit (Bld) [Volume fraction] 40.2 % Critically low 42.0-54.0 [facility] Comment on above: Performed By: #### C BC #### [facility] [address] [place] [address] Dr. Dominga Greenfield Hemoglobin (Bld) [Mass/Vol] 13.8 g/dL Critically low 14.0-18.0 [facility] Comment on above: Performed By: #### C BC #### [facility] [address] [place] [address] Dr. Dominga Greenfield IG # 0.02 10e3/ul Normal 0.00-0.[address] [facility] Comment on above: Performed By: #### C BC #### [facility] [address] [place] [address] Dr. Dominga Greenfield IG % 0.4 % Normal 0.0-0.[address] [facility] Comment on above: Performed By: #### C BC #### [facility] [address] [place] [address] Dr. Dominga Greenfield LYMPH # 1.0 103/ul Critically low 1.2-3.8 [facility] Comment on above: Performed By: #### C BC #### [facility] [address] [place] [address] Dr. Dominga Greenfield Lymphocytes/100 WBC (Bld) 19.8 % Critically low 20.5-60.0 [facility] Comment on above: Performed By: #### C BC #### [facility] [address] [place] [address] Dr. Dominga Greenfield MANUAL DIFF REQ NO Normal [facility] Comment on above: Performed By: #### C BC #### [facility] [address] [place] [address] Dr. Dominga Greenfield MCH (RBC) [Entitic mass] 31.9 pg Normal 25.9-34.0 [facility] Comment on above: Performed By: #### C BC #### [facility] [address] [place] [address] Dr. Dominga Greenfield MCHC (RBC) [Mass/Vol] 34.3 g/dL Normal 29.9-35.2 [facility] Comment on above: Performed By: #### C BC #### [facility] [address] [place] [address] Dr. Dominga Greenfield MCV (RBC) [Entitic vol] 93.1 fL Normal 80.0-94.0 [facility] Comment on above: Performed By: #### C BC #### [facility] [address] [place] [address] Dr. Dominga Greenfield MONO # 0.4 103/ul Normal 0.3-0.8 [facility] Comment on above: Performed By: #### C BC #### [facility] [address] [place] [address] Dr. Dominga Greenfield Monocytes/100 WBC (Bld) 8.4 % Normal 1.7-12.0 [facility] Comment on above: Performed By: #### C BC #### [facility] [address] [place] [address] Dr. Dominga Greenfield NEUT # 3.4 103/ul Normal 1.4-6.5 [facility] Comment on above: Performed By: #### C BC #### [facility] [address] [place] [address] Dr. Dominga Greenfield Neutrophils/100 WBC (Bld) 68.4 % Normal 43.0-75.0 [facility] Comment on above: Performed By: #### C BC #### [facility] [address] [address] [address] Dominga Greenfield Platelet mean volume (Bld) [Entitic vol] 11.0 fL Normal 9.5-13.5 [facility] Comment on above: Performed By: #### C BC #### [facility] [address] [address] [address] Dominga Greenfield PLT 206 103/ul Normal 150-450 [facility] Comment on above: Performed By: #### C BC #### [facility] [address] [address] [address] Dominga Greenfield RBC 4.32 106/ul Critically low 4.70-6.10 [facility] Comment on above: Performed By: #### C BC #### [facility] [address] [address] [address] Dominga Greenfield WBC 5.0 103/ul Normal 4.0-11.0 [facility] Comment on above: Performed By: #### C BC #### [facility] [address] [place] [address] Dr. Dominga Greenfield GLYCOHEMOGLOBIN A1Con 2021 ADA RECOMMENDATION SEE BELOW Normal [facility] Comment on above: Result Comment: ADA RECOMMENDED LIMIT 4.0 - 6.0 ADA THERAPEUTIC TARGET < 7.0 ACTION SUGGESTED > 7.0 Performed By: #### A 1C #### [facility] [address] [place] [address] Dr. Dominga Greenfield Glucose [Mass/Vol] 146 mg/dL Normal [facility] Comment on above: Performed By: #### A 1C #### [facility] [address] [place] [address] Dr. Dominga Greenfield HbA1c (Bld) [Mass fraction] 6.7 % Critically high 4.5-6.2 [facility] Comment on above: Performed By: #### A 1C #### [facility] [address] [address] [address] Dominga Greenfield LIPID PROFILEon 04-06-2022 CHOL-HDL RATIO NORM SEE BELOW Normal [facility] Comment on above: Result Comment: 3.3 - 4.4 LOW RISK 4.4 - 7.1 AVERAGE RISK 7.1 - 11.0 MODERATE RISK >11.0 HIGH RISK Performed By: #### C MP, URIC, LIPID #### [facility] [address] [address] [address] Dominga Greenfield Cholesterol [Mass/Vol] 203 mg/dL Critically high <=200 [facility] Comment on above: Performed By: #### C MP, URIC, LIPID #### [facility] [address] [address] [address] Dominga Greenfield Cholesterol in HDL [Mass/Vol] 65 mg/dL Critically high 40-60 [facility] Comment on above: Performed By: #### C MP, URIC, LIPID #### [facility] [address] [place] [address] Dr. Dominga Greenfield Cholesterol in LDL [Mass/Vol] 120.8 mg/dL Normal [facility] Comment on above: Performed By: #### C MP, URIC, LIPID #### [facility] [address] [address] [address] Dominga Greenfield Cholesterol.total/Nedra sterol in HDL [Mass ratio] 3.1 {ratio} Normal [facility] Comment on above: Performed By: #### C MP, URIC, LIPID #### [facility] [address] [address] [address] Dominga Greenfield HDL NORMAL > or = 60 mg/dl - LOW CARDIOVASCULAR RISK <40 mg/dl - HIGH CARDIOVASCULAR RISK Normal [facility] Comment on above: Performed By: #### C MP, URIC, LIPID #### [facility] [address] [address] [address] Dominga Greenfield LDL CALC NORMAL SEE BELOW Normal [facility] Comment on above: Result Comment: <100 mg/dl OPTIMAL 100 - 129 mg/dl NEAR OR ABOVE OPTIMAL 130 - 159 mg/dl BORDERLINE HIGH 160 - 189 mg/dl HIGH >190 mg/dl VERY HIGH Performed By: #### C MP, URIC, LIPID #### [facility] [address] [address] [address] Dominga Greenfield Triglyceride [Mass/Vol] 86 mg/dL Normal <=150 [facility] Comment on above: Performed By: #### C MP, URIC, LIPID #### [facility] [address] [address] [address] Dominga Greenfield VLDL CALC 17.2 mg/dL Normal [facility] Comment on above: Performed By: #### C MP, URIC, LIPID #### [facility] [address] [address] [address] Dominga Greenfield PROF 14(COMP METB)on 022 Albumin [Mass/Vol] 3.6 g/dL Normal 3.4-5.0 [facility] Comment on above: Performed By: #### C MP, URIC, LIPID #### [facility] [address] [place] [address] Dr. Dominga Greenfield Albumin/Globulin [Mass ratio] 1.1 {ratio} Normal [facility] Comment on above: Performed By: #### C MP, URIC, LIPID #### [facility] [address] [place] [address] Dr. Dominga Greenfield ALP [Catalytic activity/Vol] 66 U/L Normal 46-116 [facility] Comment on above: Performed By: #### C MP, URIC, LIPID #### [facility] [address] [place] [address] Dr. Dominga Greenfield ALT [Catalytic activity/Vol] 29 U/L Normal 16-63 [facility] Comment on above: Performed By: #### C MP, URIC, LIPID #### [facility] [address] [address] [address] Dominga Greenfield Anion gap [Moles/Vol] 10.6 mmol/L Normal [facility] Comment on above: Performed By: #### C MP, URIC, LIPID #### [facility] [address] [place] [address] Dr. Dominga Greenfield AST [Catalytic activity/Vol] 15 U/L Normal 15-37 [facility] Comment on above: Performed By: #### C MP, URIC, LIPID #### [facility] [address] [address] [address] Dominga Greenfield Bilirubin [Mass/Vol] 0.6 mg/dL Normal 0.2-1.0 [facility] Comment on above: Performed By: #### C MP, URIC, LIPID #### [facility] [address] [place] [address] Dr. Dominga Greenfield Calcium [Mass/Vol] 9.1 mg/dL Normal 8.5-10.1 [facility] Comment on above: Performed By: #### C MP, URIC, LIPID #### [facility] [address] [place] [address] Dr. Dominga Greenfield Chloride [Moles/Vol] 105 mmol/L Normal 98-107 [facility] Comment on above: Performed By: #### C MP, URIC, LIPID #### [facility] [address] [place] [address] Dr. Dominga Greenfield CO2 [Moles/Vol] 29.8 mmol/L Normal 21.0-32.0 [facility] Comment on above: Performed By: #### C MP, URIC, LIPID #### [facility] [address] [place] [address] Dr. Dominga Greenfield Creatinine [Mass/Vol] 1.31 mg/dL Critically high 0.70-1.30 [facility] Comment on above: Performed By: #### C MP, URIC, LIPID #### [facility] [facility] [address] [place] [address] Dr. Dominga Greenfield EGFR-AF HONDURAN >60 Normal >=60 [facility] Comment on above: Performed By: #### C MP, URIC, LIPID #### [facility] [address] [place] [address] Dr. Dominga Greenfield EGFR-NON AF HONDURAN 54 mL/min/1.73m2 Critically low >=60 [facility] Comment on above: Performed By: #### C MP, URIC, LIPID #### [facility] [address] [place] [address] Dr. Dominga Greenfield Globulin (S) [Mass/Vol] 3.4 g/dL Normal [facility] Comment on above: Performed By: #### C MP, URIC, LIPID #### [facility] [address] [address] [address] Dominga Greenfield Glucose [Mass/Vol] 184 mg/dL Critically high 74-106 [facility] Comment on above: Performed By: #### C MP, URIC, LIPID #### [facility] [address] [place] [address] Dr. Dominga Greenfield Potassium [Moles/Vol] 4.4 mmol/L Normal 3.5-5.1 [facility] Comment on above: Performed By: #### C MP, URIC, LIPID #### [facility] [address] [place] [address] Dr. Dominga Greenfield Protein [Mass/Vol] 7.0 g/dL Normal 6.4-8.2 [facility] Comment on above: Performed By: #### C MP, URIC, LIPID #### [facility] [address] [place] [address] Dr. Dominga Greenfield Sodium [Moles/Vol] 141 mmol/L Normal 136-145 [facility] Comment on above: Performed By: #### C MP, URIC, LIPID #### [facility] [address] [place] [address] Dr. Dominga Greenfield Urea nitrogen [Mass/Vol] 22.0 mg/dL Critically high 7.0-18.0 [facility] Comment on above: Performed By: #### C MP, URIC, LIPID #### [facility] [address] [place] [address] Dr. Dominga Greenfield Urea nitrogen/Creatinine [Mass ratio] 16.8 mg/mg Normal [facility] Comment on above: Performed By: #### C MP, URIC, LIPID #### [facility] [address] [place] [address] Dr. Dominga Greenfield URIC ACID SERUMon 04-06-2022 Urate [Mass/Vol] 5.5 mg/dL Normal 3.5-7.2 [facility] Comment on above: Performed By: #### C MP, URIC, LIPID #### [facility] [address] [address] [address] Dominga Greenfield VC COMP CONSULTATIONon 11-28 VC COMP CONSULTATION Patient: CHERYL MART Exam Date: 11/28/2021 : 1955 Gender:M Ordering : DR LASHAUN SANDERS . Admission #: [id number] Family : Order #: [id number] CLICK HERE TO VIEW EXAM RADIOLOGY REPORT [...] arterial disease 5. CEAP: C0, EN, AN, ND PLAN: 1. Use of compression stockings 2. Elevated legs and increased physical activity symptomatic relief 3. Follow-up in future as needed. Nurse notes, history and physical were reviewed and confirmed, see attached forms. The nurse was present throughout the physical exam and consultation Dictated by: Alonso Cash M.D. on 11/28/2021 at 13:42 Approved by: Alonso Cash M.D. on 11/28/2021 at 13:50 Normal [facility] VC VENOUS REFLUX RT LMTon VC VENOUS REFLUX RT LMT Patient: CHERYL MART Exam Date: 11/28/2021 : 1955 Gender:M Ordering : DR LASHAUN SANDERS . Admission #: [id number] Family : Order #: [id number] CLICK HERE TO VIEW EXAM RADIOLOGY REPORT [...] chronic thrombus visualized Compressibility: Normal Flow: Normal Parking Manager: Dist/med calf 2.1mm with 0s reflux. Mid/med [...] Cash M.D. on 11/28/2021 at 11:33 Normal [facility] VC VENOUS REFLUX LT LMTon VC VENOUS REFLUX LT LMT Patient: CHERYL MART Exam Date: 11/15/2021 : 1955 Gender:M Ordering : DR LASHAUN SANDERS . Admission #: [id number] Family : Order #: [id number] CLICK HERE TO VIEW EXAM RADIOLOGY REPORT [...] Normal. Flow: Minimal reflux in femoral vein. Parking Manager: Dist/med calf 2.7mm. Prox/med calf 2.6mm with 3.1s reflux. Mid/lat calf 3.0mm, 3.9s reflux. 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 [...] Cash M.D. on 11/15/2021 at 15:38 Normal [facility] NM STRESS/REST MULTIon 11-08 NM STRESS/REST MULTI Patient: CHERYL MART Exam Date: 11/08/2021 : 1955 Gender:M Ordering : DR LASHAUN SANDERS . Admission #: [id number] Family : Order #: [id number] CLICK HERE TO VIEW EXAM RADIOLOGY REPORT [...] Yates MD on 11/09/2021 at 07:[address] [facility] Activated partial thrombopla stin time (aPTT) in platelet poor plasma by coagulation aOrdered By: Bakari Mccormick on 10-28-2021 aPTT Coag (PPP) [Time] 28.6 s 25.1-36.5 [facility] Albumin [Mass/volume] in Ser um or PlasmaOrdered By: Bakari Mccormick on 10-28-2021 Albumin [Mass/Vol] 3.6 g/dL 3.2-5.5 [facility] Basophils Auto (Bld) [#/Vol] Ordered By: Bakari Mccormick on 10-28-2021 Basophils (Bld) [#/Vol] 0.0 10*3/uL 0.0-0.2 [facility] Basophils/100 WBC Auto (Bld) Ordered By: Bakari Mccormick on 10-28-2021 Basophils/100 WBC (Bld) 0.2 % [facility] Blood hemoglobin measurement (mass/volume)Ordered By: Bakari Mccormick on 10-28-2021 Hemoglobin (Bld) [Mass/Vol] 13.6 g/dL 13.0-17.0 [facility] Blood leukocytes automated c ount (number/volume)Ordered By: Bakari Mccormick on 10-28-2021 WBC (Bld) [#/Vol] 10.8 10*3/uL 4.5-11.0 [facility] Creatine kinase [Enzymatic a ctivity/volume] in Serum or PlasmaOrdered By: Bakari Mccormick on 10-28-2021 CK [Catalytic activity/Vol] 157 U/L 22-269 [facility] Creatinine and Glomerular fi ltration rate.predicted panel (S/P/Bld)Ordered By: Bakari Mccormick on 10-28-2021 Creatinine [Mass/Vol] 1.50 mg/dL 0.64-1.27 [facility] Eosinophils Auto (Bld) [#/Vo l]Ordered By: Bakari Mccormick on 10-28-2021 Eosinophils (Bld) [#/Vol] 0.0 10*3/uL 0.0-0.45 [facility] Eosinophils/100 WBC Auto (Bl d)Ordered By: Bakari Mccormick on 10-28-2021 Eosinophils/100 WBC (Bld) 0.4 % [facility] Erythrocyte distribution wid th Auto (RBC) [Ratio]Ordered By: Bakari Mccormick on 10-28-2021 Erythrocyte distribution width (RBC) [Ratio] 13.6 % 12.0-14.8 [facility] Estimated glomerular filtrat ion rate (GFR) non- AmericanOrdered By: Bakari Mccormick on 10-28-2021 GFR/1.73 sq M.predicted among non-blacks MDRD (S/P/Bld) [Vol rate/Area] 47 mL/Min [facility] Globulin Calc (S) [Mass/Vol] Ordered By: Bakari Mccormick on 10-28-2021 Globulin (S) [Mass/Vol] 2.6 g/dL [facility] Hematocrit Auto (Bld) [Volum e fraction]Ordered By: Bakari Mccormick on 10-28-2021 Hematocrit (Bld) [Volume fraction] 40.4 % 38.8-50.0 [facility] - CoagulationOrde red By: Bakari Mccormick on 10-28-2021 PT Coag (PPP) [Time] 12.4 s 9.0-12.9 [facility] - Hematology and Cell countsOrdered By: Bakari Mccormick on 10-28-2021 Nucleated RBC/100 WBC (Bld) [Ratio] 0.0 % 0-0.5 [facility] Lymphocytes Auto (Bld) [#/Vo l]Ordered By: Bakari Mccormick on 10-28-2021 Lymphocytes (Bld) [#/Vol] 0.6 10*3/uL 1.00-4.8 [facility] Lymphocytes/100 WBC Auto (Bl d)Ordered By: Bakari Mccormick on 10-28-2021 Lymphocytes/100 WBC (Bld) 5.5 % [facility] MCH Auto (RBC) [Entitic mass ]Ordered By: Bakari Mccormick on 10-28-2021 MCH (RBC) [Entitic mass] 31.6 pg 27.5-35.2 [facility] MCHC Auto (RBC) [Mass/Vol]Or dered By: Bakari Mccormick on 10-28-2021 MCHC (RBC) [Mass/Vol] 33.7 g/dL 32.5-35.6 [facility] MCV Auto (RBC) [Entitic vol] Ordered By: Bakari Mccormick on 10-28-2021 MCV (RBC) [Entitic vol] 93.7 fL 83.5-101 [facility] Monocytes Auto (Bld) [#/Vol] Ordered By: Bakari Mccormick on 10-28-2021 Monocytes (Bld) [#/Vol] 0.6 10*3/uL 0.0-0.8 [facility] Monocytes/100 WBC Auto (Bld) Ordered By: Bakari Mccormick on 10-28-2021 Monocytes/100 WBC (Bld) 5.4 % [facility] Neutrophils Auto (Bld) [#/Vo l]Ordered By: Bakari Mccormick on 10-28-2021 Neutrophils (Bld) [#/Vol] 9.6 10*3/uL 1.8-7.7 [facility] Neutrophils/100 WBC Auto (Bl d)Ordered By: Bakari Mccormick on 10-28-2021 Neutrophils/100 WBC (Bld) 88.5 % [facility] No Panel InformationOrdered By: Bakari Mccormick on 10-28-2021 Estimated GFR () 56 mL/Min [facility] Comment on above: GFR estimated refere nce range: According to KDOQI guidelines, <60 ml/min/1.73m2 is sufficient to diagnose a patient with chronic kidney disease. Pharmacy Creatinine Clearance (Chem 44.64 [facility] Stool Occult Blood (FRED) [facility] Platelet mean volume Auto (B ld) [Entitic vol]Ordered By: Bakari Mccormick on 10-28-2021 Platelet mean volume (Bld) [Entitic vol] 9.0 fL 6.6-10.1 [facility] Platelet poor plasma interna tional normalized ratio (INR) by coagulation assay (relatOrdered By: Bakari Mccormick on 10-28-2021 INR Coag (PPP) [Relative time] 1.1 {INR} [facility] Comment on above: INR Therapeutic Rang [...] 4.5 Platelets Auto (Bld) [#/Vol] Ordered By: Bakari Mccormick on 10-28-2021 Platelets (Bld) [#/Vol] 218 10*3/uL 150-450 [facility] Protein [Mass/volume] in Ser um or PlasmaOrdered By: Bakari Mccormikc on 10-28-2021 Protein [Mass/Vol] 6.2 g/dL 6.1-7.9 [facility] RBC Auto (Bld) [#/Vol]Ordere d By: Bakari Mccormick on 10-28-2021 RBC (Bld) [#/Vol] 4.31 10*6/uL 3.90-5.60 [facility] Serum or plasma alanine bradford otransferase measurement without P-5'-P (enzymatic activiOrdered By: Bakari Mccormick on 10-28-2021 ALT No additional P-5'-P [Catalytic activity/Vol] 25 U/L 10-60 [facility] Serum or plasma albumin/glob ulin mass ratioOrdered By: Bakari Mccormick on 10-28-2021 Albumin/Globulin [Mass ratio] 1.4 {ratio} [facility] Serum or plasma alkaline vanessa sphatase measurement (enzymatic activity/volume)Ordered By: Bakari Mccormick on 10-28-2021 ALP [Catalytic activity/Vol] 62 U/L 32-92 [facility] Serum or plasma aspartate am inotransferase measurement (enzymatic activity/volume)Ordered By: Bakari Mccormick on 10-28-2021 AST [Catalytic activity/Vol] 23 U/L 10-42 [facility] Serum or plasma calcium mariam urement (mass/volume)Ordered By: Bakari Mccormick on 10-28-2021 Calcium [Mass/Vol] 9.1 mg/dL 8.2-10.2 [facility] Serum or plasma chloride lala surement (moles/volume)Ordered By: Bakari Mccormick on 10-28-2021 Chloride [Moles/Vol] 108 mmol/L 95-114 [facility] Serum or plasma creatine kin ase MB (CKMB)/total creatine kinase (CK) ratio by calculaOrdered By: Bakari Mccormick on 10-28-2021 CK.MB Calc [Catalytic fraction] 2.9 % 0.00-2.50 [facility] Serum or plasma creatine kin ase MB measurement (mass/volume)Ordered By: Bakari Mccormick on 10-28-2021 CK.MB [Mass/Vol] 4.6 ng/mL 0.6-6.3 [facility] Serum or plasma ethanol mariam urement (mass/volume)Ordered By: Bakari Mccormick on 10-28-2021 Ethanol [Mass/Vol] mg/dL [facility] Ethanol [Mass/Vol] TNP [facility] Comment on above: Test not performed Serum or plasma glucose mariam urement (mass/volume)Ordered By: Bakari Mccormick on 10-28-2021 Glucose [Mass/Vol] 107 mg/dL 70-100 [facility] Comment on above: ADA recommended refe rence range Random Glucose Reference Range is dependent on time and content of last meal. Glucose of more than 200 mg/dL in a nonstressed, ambulatory subject supports the diagnosis of Diabetes Mellitus. Serum or plasma potassium me asurement (moles/volume)Ordered By: Bakari Mccormick on 10-28-2021 Potassium [Moles/Vol] 4.1 mmol/L 3.5-5.1 [facility] Serum or plasma sodium measu rement (moles/volume)Ordered By: Bakari Mccormick on 10-28-2021 Sodium [Moles/Vol] 140 mmol/L 136-146 [facility] Serum or plasma total biliru bin measurement (mass/volume)Ordered By: Bakari Mccormick on 10-28-2021 Bilirubin [Mass/Vol] 0.8 mg/dL 0.3-1.2 [facility] Serum or plasma total carbon dioxide measurement (moles/volume)Ordered By: Bakari Mccormick on 10-28-2021 CO2 [Moles/Vol] 23.9 mmol/L 22.0-30.0 [facility] Serum or plasma urea nitroge n measurement (mass/volume)Ordered By: Bakari Mccormick on 10-28-2021 Urea nitrogen [Mass/Vol] 19 mg/dL 9 [facility] Troponin I.cardiac [Mass/vol ume] in Serum or Plasma by High sensitivity methodOrdered By: Bakari Mccormick on 10-28-2021 Troponin I.cardiac High sensitivity method [Mass/Vol] 15 pg/mL 0-20 [facility] Vital Signs Date Time Vital Sign Value Performing Clinician Alexandrai venancio 02-11-2024 13:18-0400 Blood Pressure Location Cheryl CARIASDrew [facility] 02-11-2024 13:18-0400 Diastolic blood pressure 84 mm[Hg] Cheryl CARIASDrwe [facility] 02-11-2024 13:18-0400 Heart rate 72 /min Cheryl CARIASDrew [facility] 02-11-2024 13:18-0400 Respiratory rate 16 /min Cheryl CARIASDrew [facility] 02-11-2024 13:18-0400 Systolic blood pressure 146 mm[Hg] Cheryl CARIASDrew [facility] 10-28-2021 20:39-0400 Diastolic blood pressure 68 mm[Hg] MD Bakari Mccormick Work Phone: [facility] 10-28-2021 20:39-0400 Heart rate 71 /min MD Bakari Mccormick Work Phone: [facility] 10-28-2021 20:39-0400 Respiratory rate 20 /min MD Bakari Mccormick Work Phone: [facility] 10-28-2021 20:39-0400 SaO2% (BldA) [Mass fraction] 99 % MD Bakari Mccormick Work Phone: [facility] 10-28-2021 20:39-0400 Systolic blood pressure 142 mm[Hg] MD Bakari Mccormick Work Phone: [facility] 10-28-2021 18:30-0400 Body height 162.56 cm MD Bakari Mccormick Work Phone: [facility] 10-28-2021 18:30-0400 Body mass index (BMI) [Ratio] 28.8 kg/m2 MD Bakari Mccormick Work Phone: [facility] 10-28-2021 18:30-0400 Body weight 76.3 kg MD Bakari Mccormick Work Phone: [facility] 10-28-2021 18:27-0400 Body temperature 97.4 [degF] MD Bakari Mccormick Work Phone: [facility] Encounters Encounter Date Encounter Type Care Provider Facility Start: 03-10-2024 End: 03-10-2024 ambulatory Cheryl CERDA Facility:[facility] Start: 03-10-2024 End: 03-10-2024 Patient encounter [facility] Start: 02-19-2024 End: 02-19-2024 ambulatory Cheryl Cerda [facility] Work Phone: Start: 02-19-2024 End: 02-19-2024 Departed Referred MD Cheryl Cerda Work Phone: [facility] Start: 02-19-2024 End: 02-19-2024 ambulatory Cheryl CERDA Facility:[id number] Start: 02-11-2024 End: 02-11-2024 ambulatory Lashaun Sanders Facility:[facility] Start: 02-11-2024 End: 02-11-2024 Patient encounter procedure Cheryl CERDA [facility] Start: 09-25-2022 End: 09-26-[address] LASHAUN SANDERS . Facility: Start: 09-12-2022 End: 09-13-[address] LASHAUN SANDERS . Facility:[facility] Start: 04-11-2022 Encounter for genera l adult medical examination without abnormal findings DR LASHAUN SANDERS . [facility] Start: 04-06-2022 End: 04-07-[address] LASHAUN SANDERS . Facility:[facility] Start: 04-06-2022 End: 04-07-2022 Encounter for general adult medical examination without abnormal findings DR LASHAUN SANDERS . Facility:[facility] Start: 11-28-2021 End: 11-29-[address] LASHAUN SANDERS . Facility:[facility] Start: 11-15-2021 End: 11-16-[address] LASHAUN SANDERS . Facility:[facility] Start: 11-08-2021 End: 11-09-[address] LASHAUN SANDERS . Facility:[facility] Start: 10-31-2021 End: 10-31-2021 ambulatory UNKNOWN PROVIDER Facility:[facility] Start: 10-30-2021 End: 10-31-[address] LASHAUN SANDERS . Facility:[facility] Start: 10-28-2021 End: 10-28-2021 ambulatory UNKNOWN PROVIDER Facility:[facility] Start: 10-28-2021 End: 10-28-2021 Emergency department patient visit MD Bakari Mccormick Work Phone: [facility]Emergency Room Procedures Date Procedure Procedure Detail Performing Clinician Start: 02-19-2024 Colonoscopy Cheryl PINO LL Start: 04-06-[address] DENI SANDERS . Comment on above: Performed By: #### P [facility] #### [facility] [address] [place] [address] Dr. Dominga Greenfield Start: 10-28-2021 Stool Occult Blood (FRED) MD Bakari Mccormick Work Phone: Start: 05-11-2020 Colonoscopy Cheryl NI LL Start: 10-20-2012 Colonoscopy Cheryl NI LL Start: 03-05-2008 Colonoscopy Cheryl NI LL Arthroplasty Cheryl CARIASL Comment on above: right and left shoul ders Bilateral inguinal h ernia repair Cheryl NILL Lumbar spinal fusion Cheryl NILL Comment on above: L4-L5 Plan of Treatment Date Care Activity Detail Author Start: 10-28-2021 Plain chest X-ray XR chest 1V portab le [facility] Patient Education Diarrhea, Adul t ED Dehydration, Adult ED [facility] Work Phone: Patient referral [facility] Work Phone: Immunizations Immunization Date Immunization Notes Care Provider Fa cili 03-05-2023 influenza virus vaccine, unspecified formulation Cheryl CARIASL [facility] 02-15-2021 SARS-CoV-2 (COVID-19 ) mRNA BNT-162b2 vax Cheryl CARIASL [facility] Comment on above: Result Comment: 2023: [id number] 07-01-2020 SARS-CoV-2 (COVID-19 ) mRNA BNT-162b2 vax Cheryl NILL [facility] Comment on above: Result Comment: 2023: [id number] 06-10-2020 SARS-CoV-2 (COVID-19 ) mRNA BNT-162b2 vax Cheryl Batzu MediaL [facility] Comment on above: Result Comment: 2023: [id number] Payers Date Payer Category Payer Self-pay [id number] 2023 Medicare [id number] 2021 Unknown 1 2021 Unknown 9 1959 Private Health Insurance [id number] 1955 Unknown [id number] 32 1955 Unknown [id number] [id number] 32 1955 Unknown [id number] [id number] 93 1955 Unknown [id number] [id number] 93 1955 Unknown [id number] 2.16.840.1.513874.3.579.2.5 93 1955 Unknown [id number] 2.16.840.1.605728.3.579.2.5 93 1955 Unknown [id number] 2.16.840.1.106109.3.579.2.5 93 1955 Unknown [id number] 2.16.840.1.731659.3.579.2.5 93 1955 Unknown [id number] 2.16.840.1.047763.3.579.2.5 93 1955 Unknown [id number] 2.16.840.1.485902.3.579.2.7 27 1955 Unknown [id number] 2.16.840.1.817644.3.579.2.7 27 1955 Unknown [id number] [id number] 27 Medicare Medicare-OP No Part B [id number] Unknown [id number] 31 Social History Date Type Detail Facility Start: 10-28-2021 End: 02-11-2024 Tobacco smoking status NHIS Never smoked tobacco (finding) [facility] Start: 1955 Sex Assigned At Male [facility] Tobacco smoking status Never [facility] Sex Assigned At Male [facility] Functional Status Date Assessment Result Facility 03-10-2024 Functional Status N/A [facility] 02-11-2024 Functional Status N/A [facility] Clinical Note 02-11-2024 Note Date & Type [...] was adopted Immunizatio (more content not included)... [facility] Comment on above: Result Comment: Elec tronically Signed By: ALYSIA MONSON, Cheryl Cespedes\Date and Time Signed: 02/11/24 13:40 EDT Evaluation + Plan note Note Date & Type Note Facility Evaluation + Plan note No data available for this section [facility] Evaluation note Note Date & Type Note Facility Evaluation note No assessment information availa [facility] Work Phone: Hospital Discharge instructions Note Date & Type Note Facility Hospital Discharge instructions Additional Instructions Follow-up with your private physicians about the episodes you are having when you get sweaty and have diarrhea. Return if symptoms are worse Lots of fluids [facility] Work Phone: Hospital Discharge instructions Note Date & Type Note Facility Hospital Discharge instructions No data available for this section [facility] Progress note Note Date & Type Note Facility Progress note No data available for this section [facility] Chief Complaint and Reason for Visit Chief Complaint SYNCOPE Chief Complaint Unknown Advance Directives No Advanced Directives Records Found Advance Directive Response Recorded Date/ Time Advance Directives No October 28 6:52pm Summary Purpose Family History No Family History Records FoundNo Family History Records Found No data available for this section No Family History Records Found No data available for this section No Family History Records Found Additional Source Comments Care Teams (unrecognized sec tion and content) Team Status: Inactive Member Role Status Dates Bakari Mccormick MD Emergency Provider Active Lashaun Sanders MD Primary Care Provider Active Team Status: Active Member Role Status Dates Lashaun Sanders MD Primary Care Provider Active Team Status: Inactive Member Role Status Dates Cheryl Cerda MD FACS Attending Provider Active Start: February 19, 2024 End: February 19, 2024 Goals (unrecognized section and content) Goals may be documented in a n alternate section No data available for this sectionGoals may be documented in an alternate section No data available for this section (unrecognized sect ion and content) No Status Records FoundNo Status Records FoundNo Status Records FoundNo Status Records Found INFORMATION SOURCE (unrecogn ized section and content) DATE CREATED AUTHOR 12/03/2021 [facility] [employer] DATE CREATED AUTHOR AUTHOR'S ORGANIZ ATION 09/26/2022 [facility] DATE CREATED AUTHOR AUTHOR'S ORGANIZ ATION 02/24/2024 [facility] DATE CREATED AUTHOR AUTHOR'S ORGANIZ ATION 03/12/2024 [facility] FOR RECORDS PERTAINING TO PATIENTS WHO ARE [...] BE BASED ON THE PRIMARY CLINICAL RECORDS. [facility]. provides no warranty or guarantee of the accuracy or completeness of information in this document.
[2025-02-05 07:28] LABS: Hematocrit 37.0 % (42.0-54.0); Hemoglobin 12.6 g/dL (14.0-18.0); Immature Granulocytes Abs Auto 0.00 10^3/uL (0.00-0.03); Immature Granulocytes Pct Auto 0.0 % (0.0-0.5); Lymphocytes Absolute Auto 1.0 10^3/uL (1.2-3.8); Mean Corpuscular HGB Conc 34.1 g/dL (29.9-35.2); Mean Corpuscular Hemoglobin 32.0 pg (25.9-34.0); Mean Corpuscular Volume 93.9 fL (80.0-94.0); Platelet Count 210 10^3/uL (150-450); Red Blood Count 3.94 10^6/uL (4.70-6.10); White Blood Count 5.1 10^3/uL (4.0-11.0)
[2025-02-05 08:01] LABS: Alanine Aminotransferase 23 U/L (16-63); Albumin Globulin Ratio 1.1; Albumin Level 3.5 g/dL (3.4-5.0); Alkaline Phosphatase 61 U/L (46-116); Anion Gap 11.0; Aspartate Amino Transferase 16 U/L (15-37); Blood Urea Nitrogen 21.0 mg/dL (7.0-18.0); Calcium 9.2 mg/dL (8.5-10.1); Carbon Dioxide 28.3 mmol/L (21.0-32.0); Chloride 105 mmol/L (98-107); Cholesterol 164 mg/dL (<=200); Estimated GFR (African America 53 (>=60 mL/min/1.73m^2); Estimated GFR (Non-African Ame 44 (>=60 mL/min/1.73m^2); Free T3 2.08 pg/mL (2.18-3.98); Globulin 3.3 g/dL; Glucose 146 mg/dL (74-106); HDL Cholesterol 58 mg/dL (40-60); Potassium 4.3 mmol/L (3.5-5.1); Sodium 140 mmol/L (136-145); Thyroid Stimulating Hormone 2.304 uIU/mL (0.358-3.740); Total Protein 6.8 g/dL (6.4-8.2); Triglycerides 105 mg/dL (<=150); VLDL CHOLESTEROL 21.0 mg/dL
== END 2025-02-05 07:07 | disposition home or self-care (01) ==
LOC: LAB 07:11
PROVIDERS: PCP Family Medicine; Visit Provider Family Medicine
DX: E11.9 Type 2 diabetes mellitus without complications (principal); K21.9 Gastro-esophageal reflux disease without esophagitis; I10 Essential (primary) hypertension; E78.00 Pure hypercholesterolemia, unspecified; R53.83 Other fatigue; Z12.5 Encounter for screening for malignant neoplasm of prostate
CPT/HCPCS: 36415; 80053; 80061; 83036; 84436; 84443; 84481; 85025; G0103